=== PATIENT | male | born 1955 | race Caucasian/White ===

== ENCOUNTER → 2022-07-06 08:56 | Outpatient (CLI) | payer MEDICARE, OTHER, SELFPAY | PROVIDERS: PCP Family Medicine; Referring Provider Family Medicine; Visit Provider Family Medicine | DX: M51.16 Intervertebral disc disorders with radiculopathy, lumbar region (principal); M54.50 Low back pain, unspecified; Z53.20 Procedure and treatment not carried out because of patient's decision for unspecified reasons | CPT/HCPCS: 72148 ==

== ENCOUNTER → 2022-07-21 11:17 | Outpatient (CLI) | payer MEDICARE, OTHER, SELFPAY ==
--- NOTE | 2022-07-21 11:18 | DI.MRI.S_ITS ---
PROCEDURE: MR LUMBAR SPINE WO CON INDICATIONS: low back pain TECHNIQUE: Noncontrast sagittal T1 spin echo and T2 fast echo, sagittal STIR, and T2 fast spin echo through the lumbar spine. In cases with scoliosis, additional coronal T2 fast spin echo may be performed. COMPARISON: None. FINDINGS: Image quality: Excellent. Alignment and Curvature: Mild levoconvex scoliotic curvature is noted. Minimal retrolisthesis can be seen at L3-L4 and at L5-S1. Bone Marrow: Marrow is of normal overall signal. No acute vertebral body compression fractures. Spinal Cord: Conus medullaris terminates at the L1 level. Visualized cord demonstrates normal signal and size. Paraspinous Soft Tissues: No paravertebral masses. A large left renal cyst is partially seen that measures at least 9 cm. T12-L1: Normal appearance. L1-L2: The disc height and disc signal are relatively well preserved. Mild generalized disc bulge is seen. There is a mild central/left disc protrusion, as on series 6, image 10. Mild facet joint hypertrophy is seen. There is minimal to mild bilateral neural foraminal narrowing seen. Mild central canal narrowing is seen. L2-L3: Moderate loss of disc height is seen. Loss of disc signal is seen. Moderate disc bulge is seen, which is eccentric to the left, with a left foraminal disc protrusion seen. Moderate facet joint hypertrophy is seen. Moderate bilateral neural foraminal narrowing can be seen, left worse than right. Moderate central canal narrowing is seen. L3-L4: Moderate to severe loss of disc height and disc signal can be seen. Reactive marrow endplate changes are seen which are hypointense on T1-weighted imaging and hyperintense on T2 weighted imaging, which is most consistent with edema (Modic type I changes). At least moderate disc bulge is seen, which is eccentric to the right. Bridging endplate osteophytes are seen on the right side, as on series 2, image 5. Moderate facet hypertrophy is seen, right worse than left. There is at least moderate left-sided and moderate to severe right-sided neural foraminal narrowing. There is a degree of compression seen upon the exiting nerve roots. At least moderate central canal narrowing is seen. L4-L5: Mild loss of disc height is seen. Loss of disc signal is seen. Moderate disc bulge is seen, which is eccentric to the left. There is a central/left disc extrusion. At least moderate facet hypertrophy is seen. There is moderate to severe bilateral neural foraminal narrowing seen, with an associated a degree of compression seen upon the exiting nerve roots. At least moderate central canal narrowing is seen. L5-S1: At least moderate loss of disc height and disc signal can be seen. Moderate disc bulge is seen, which is eccentric to the left. There is a central disc protrusion seen. At least moderate facet hypertrophy is seen. There is moderate right-sided and moderate to severe left-sided neural foraminal narrowing. There is a degree of compression seen upon the exiting left L5 nerve root. Mild central canal narrowing is seen. IMPRESSION: Multiple levels relatively prominent lumbar spine degenerative change can be seen, which are overall worst at the L3-L4 level. Mild levoconvex scoliotic curvature is noted. Dictated by: Meño Davis M.D. on 07/21/2022 at 15:10 Approved by: Meño Davis M.D. on 07/21/2022 at 15:15
== END ==
PROVIDERS: PCP Family Medicine; Referring Provider Family Medicine; Visit Provider Family Medicine
DX: M54.50 Low back pain, unspecified (principal); M47.816 Spondylosis without myelopathy or radiculopathy, lumbar region
CPT/HCPCS: 72148

== ENCOUNTER 2022-11-09 09:45 | Outpatient (RCR) | payer MEDICARE, OTHER, SELFPAY ==
--- NOTE | 2022-08-11 17:54 | PT.OIE ---
Current Diagnoses Pain in right hip (08/11/22) Intervertebral disc disorders with radiculopathy, lumbar region (08/11/22) Low back pain, unspecified (08/11/22) Past Medical History (Last Updated 07/24/22 @ 14:34 by Jane Ellison DO) COPD (chronic obstructive pulmonary disease) Low back pain at multiple sites Radiculopathy due to disorder of intervertebral disc of lumbar spine Visit Care Team Role Provider Type Jane Ellison DO Attending Provider Physician Family Provider Primary Care Provider Referring Provider Specialty: Medical Address: [address] [place] [address], [address], [place], [address] Fax: Email: [email or web address] Physical Therapy Initial Evaluation PT-OP-A Visit Information Start: 08/11/22 17:30 Freq: Status: Active Protocol: Document 08/11/22 10:30 DCW (Rec: 08/11/22 17:53 DCW [id number]) Out-Patient Physical Therapy Visit Information Visit Information Visit Type Initial Evaluation Visit Start Time 10:30 Visit Stop Time 11:15 Total Visit Minutes 45 Visit Number 1 Number of APPLICATION DEVELOPMENT INTERN Visits 0 Evaluation Information Evaluation Date 08/11/22 PT-OP-B Current Condition Start: 08/11/22 17:30 Freq: Status: Active Protocol: Document 08/11/22 10:30 DCW (Rec: 08/11/22 17:53 DCW [id number]) Current Condition History of Current Condition Onset Date ~1 year history Current Complaints Posterior right hip pain History of Current Condition Pt is a 67 year old male presenting to skilled therapy with complaints of a one year history of posterior right hip pain. Pt reports that he has a long-standing, multi-year history of this same type of pain, but it has just been off and on throughout his life. Starting about a year ago, however, he noticed it was no longer going away, which he mainly noticed following a lot of traveling. Pt report pain is worst with extended sitting , especially in a car or airplane. Additionally has increased pain walking up hill . Reports it does feel better with stretching, but has not had any improvement with massage therapy or care director rn. Pt reports pain can occasionally go from his posterior hip down his lateral thigh, typically stopping at his knee, but will occasionally get into his foot. Prior Treatments and Tests Lumbar MRI: IMPRESSION: Multiple levels relatively prominent lumbar spine degenerative change can be seen, which are overall worst at the L3-L4 level. Mild levoconvex scoliotic curvature is noted. per Meño Davis M.D. on 07/21/2022 Treatment Goals Patient/Caregiver Goals Decrease back, hip, and leg pain PT-OP-C Subjective Start: 08/11/22 17:30 Freq: Status: Active Protocol: Document 08/11/22 10:30 DCW (Rec: 08/11/22 17:53 DCW [id number]) OP-PT Subjective Patient Comments Patient Comments I know my MRI said there is a bulging disc, but I've been wondering if it has more to do with the musculature back there. Patient Questionnaires Oswestry Low Back Index Oswestry Score 6/50 = 12% Oswestry Impairment 1 to 19% Impaired (Score 1-19) OP-PT Pain Assessment Pain Assessment Grid Paper Pain Assessment Grid Completed Yes Location Right Posterior Hip Intensity 5 PT-OP-F Manual Assessment Start: 08/11/22 17:30 Freq: Status: Active Protocol: Document 08/11/22 10:30 DCW (Rec: 08/11/22 17:53 DCW [id number]) Manual Assessments Soft Tissue Assessment Soft Tissue Mobility Assessment Moderate-severe hypertonia R>L piriformis, R QL, R paraspinals. Joint Mobility Assessment Joint Mobility Assessment Spinal mobility largely WNL, good ROM, appropriate P->A joint mobility, no complaints of pain PT-OP-K Range of Motion Start: 08/11/22 17:30 Freq: Status: Active Protocol: Document 08/11/22 10:30 DCW (Rec: 08/11/22 17:53 DCW [id number]) Lumbar Spine Range of Motion Lumbar Spine Active Degrees Testing Position Standing Flexion 70 Extension 30 PT-OP-L Special Tests Start: 08/11/22 17:30 Freq: Status: Active Protocol: Document 08/11/22 10:30 DCW (Rec: 08/11/22 17:53 DCW [id number]) Special Tests Lumbar Spine Special Tests JAMEL Test Results Right hip tightness Vertical Spine Loading Test Results Negative Straight Leg Raise Test Results B HS tightness Standing Flexion Test Results Negative Slump Test Results Negative Manual Traction Test Results Mild relief Compression Test Results Negative A-P Shearing Test Results Negative PT-OP-M Strength Start: 08/11/22 17:30 Freq: Status: Active Protocol: Document 08/11/22 10:30 DCW (Rec: 08/11/22 17:53 DCW [id number]) Hip Strength Hip Manual Muscle Testing Right Flexion (L2) 4 Good Abduction 4 Good Adduction 4 Good External Rotation 5 Normal Internal Rotation 5 Normal Left Flexion (L2) 5 Normal Abduction 5 Normal Adduction 5 Normal External Rotation 5 Normal Internal Rotation 5 Normal Knee Strength Knee Manual Muscle Testing Right Flexion (S2) 5 Normal Extension (L3) 5 Normal Left Flexion (S2) 5 Normal Extension (L3) 5 Normal PT-OP-Q Treatments Start: 08/11/22 17:30 Freq: Status: Active Protocol: Document 08/11/22 10:30 DCW (Rec: 08/11/22 17:53 DCW [id number]) Therapeutic Exercises Supine Exercises Piriformis Stretch Supine Exercise Name Figure-4, Knee to opposite shoulder Side right Sitting Exercises Self-STM Sitting Exercise Name Piriformis STM Side right Comments Tennis ball Piriformis Stretch Sitting Exercise Name Seated figure-4 Side right PT-OP-T Assessment and Plan Start: 08/11/22 17:30 Freq: Status: Active Protocol: Document 08/11/22 10:30 DCW (Rec: 08/11/22 17:53 DCW [id number]) Physical Therapy Assessment Rehab Potential Rehabilitation Potential Good Evaluation Complexity Number of Personal Factors/Comorbidities 1-2 Number of Body Systems Impaired 3 Clinical Presentation at Evaluation Stable Impairments Impairments Functional Activities, Functional Mobility,Pain,ROM, Sensation,Soft Tissue Mobility ,Strength,Tone Goals Two Impairment Pt experiences radicular symptoms with extended sitting Reed Repairer Goal (LTG) Pt to demonstrate ability to sit in his car for >90 minutes to improve his ability to travel without pain. LTG Duration 10/11/22 One Impairment Pt does not have an appropriate home exercise program Short Term Goal (STG) Pt to be independent and compliant with an appropriate HEP STG Duration 09/10/22 Assessment Summary Assessment Pt presents with signs and symptoms consistent with referring diagnosis. Pt showing radicular symptoms down right leg with extended periods of sitting. MRI does show L4 bulging disc, which may be contributing factor, as well as degenerative changes. Pt has some mild relief with traction. Some of pt's symptoms may additionally be caused by increased tone in his musculature, specifically his piriformis. Moderate- severe tone in right piriformis, pt responded very well to stretching and STM, noted almost immediate improvement in symptoms. Pt should benefit from skilled therapy focusing on improving tone/flexibility, STM, lumbar traction, and lumbar extension exercises to improve disc bulge in an effort to help decrease protective spasming in lumbar spine and posterior hips. Physical Therapy Plan Frequency and Duration Frequency of Treatment 2x/Week Plan of Care Start Date 08/11/22 Plan of Care End Date 10/11/22 Therapeutic Interventions Therapeutic Interventions Aquatic Therapy,Home Exercise Program,Joint Mobilizations, Manual Therapy,Neuromuscular Re-education,Patient/Caregiver Education,Self-Care/Home Management,Soft Tissue Mobilization,Therapeutic Activities,Therapeutic Exercises Modalities Cold Pack/Ice Massage,Electric Stimulation,Hot Packs, Ultrasound Next Visit Focus/Plan Next Note Type Treatment Note Next Visit Plan Stretching, STM, hip and core strengthening
--- NOTE | 2022-08-11 17:55 | PT.OPPOC ---
Physical, Occupational & Speech Therapy At [facility] Current Diagnoses Pain in right hip (08/11/22) Intervertebral disc disorders with radiculopathy, lumbar region (08/11/22) Low back pain, unspecified (08/11/22) Visit Care Team Role Provider Type Jane Ellison DO Attending Provider Physician Family Provider Primary Care Provider Referring Provider Specialty: Medical Address: [address] [place] [address], [address], [place], [address] Fax: Email: [email or web address] Plan Of Care PT-OP-T Assessment and Plan Start: 08/11/22 17:30 Freq: Status: Active Protocol: Document 08/11/22 10:30 DCW (Rec: 08/11/22 17:53 DCW [id number]) Physical Therapy Assessment Rehab Potential Rehabilitation Potential Good Evaluation Complexity Number of Personal Factors/Comorbidities 1-2 Number of Body Systems Impaired 3 Clinical Presentation at Evaluation Stable Impairments Impairments Functional Activities, Functional Mobility,Pain,ROM, Sensation,Soft Tissue Mobility ,Strength,Tone Goals Two Impairment Pt experiences radicular symptoms with extended sitting Care Home Goal (LTG) Pt to demonstrate ability to sit in his car for >90 minutes to improve his ability to travel without pain. LTG Duration 10/11/22 One Impairment Pt does not have an appropriate home exercise program Short Term Goal (STG) Pt to be independent and compliant with an appropriate HEP STG Duration 09/10/22 Assessment Summary Assessment Pt presents with signs and symptoms consistent with referring diagnosis. Pt showing radicular symptoms down right leg with extended periods of sitting. MRI does show L4 bulging disc, which may be contributing factor, as well as degenerative changes. Pt has some mild relief with traction. Some of pt's symptoms may additionally be caused by increased tone in his musculature, specifically his piriformis. Moderate- severe tone in right piriformis, pt responded very well to stretching and STM, noted almost immediate improvement in symptoms. Pt should benefit from skilled therapy focusing on improving tone/flexibility, STM, lumbar traction, and lumbar extension exercises to improve disc bulge in an effort to help decrease protective spasming in lumbar spine and posterior hips. Physical Therapy Plan Frequency and Duration Frequency of Treatment 2x/Week Plan of Care Start Date 08/11/22 Plan of Care End Date 10/11/22 Therapeutic Interventions Therapeutic Interventions Aquatic Therapy,Home Exercise Program,Joint Mobilizations, Manual Therapy,Neuromuscular Re-education,Patient/Caregiver Education,Self-Care/Home Management,Soft Tissue Mobilization,Therapeutic Activities,Therapeutic Exercises Modalities Cold Pack/Ice Massage,Electric Stimulation,Hot Packs, Ultrasound Next Visit Focus/Plan Next Note Type Treatment Note Next Visit Plan Stretching, STM, hip and core strengthening Plan of Care Dates Plan of Care Start Date 08/11/22 Plan of Care End Date 10/11/22 Electronically Signed by: Yogesh Kapadia, PT 08/11/22 3655 If you are in agreement with this Plan of Care, please return a signed and dated copy. I have reviewed this Plan of Care and certify that the skilled therapy services above are required to meet the patient?s needs. Physician Signature Date Printed Name and Credentials Clinical Instructor Signature Printed Name and Credentials
--- NOTE | 2022-08-18 12:48 | PT.OTN ---
Current Diagnoses Pain in right hip (08/18/22) Intervertebral disc disorders with radiculopathy, lumbar region (08/18/22) Low back pain, unspecified (08/18/22) Physical Therapy Treatment Note PT-OP-A Visit Information Start: 08/11/22 17:30 Freq: Status: Active Protocol: Document 08/18/22 12:00 DCW (Rec: 08/18/22 12:48 DCW [id number]) Out-Patient Physical Therapy Visit Information Visit Information Visit Type Treatment Note Visit Start Time 12:00 Visit Stop Time 12:45 Total Visit Minutes 45 Visit Number 2 Number of SENIOR MEDIA BUYER Visits 0 Evaluation Information Evaluation Date 08/11/22 PT-OP-B Current Condition Start: 08/11/22 17:30 Freq: Status: Active Protocol: Document 08/11/22 10:30 DCW (Rec: 08/11/22 17:53 DCW [id number]) Current Condition History of Current Condition Onset Date ~1 year history Current Complaints Posterior right hip pain History of Current Condition Pt is a 67 year old male presenting to skilled therapy with complaints of a one year history of posterior right hip pain. Pt reports that he has a long-standing, multi-year history of this same type of pain, but it has just been off and on throughout his life. Starting about a year ago, however, he noticed it was no longer going away, which he mainly noticed following a lot of traveling. Pt report pain is worst with extended sitting , especially in a car or airplane. Additionally has increased pain walking up hill . Reports it does feel better with stretching, but has not had any improvement with massage therapy or residential care officer. Pt reports pain can occasionally go from his posterior hip down his lateral thigh, typically stopping at his knee, but will occasionally get into his foot. Prior Treatments and Tests Lumbar MRI: IMPRESSION: Multiple levels relatively prominent lumbar spine degenerative change can be seen, which are overall worst at the L3-L4 level. Mild levoconvex scoliotic curvature is noted. per Meño Davis M.D. on 07/21/2022 Treatment Goals Patient/Caregiver Goals Decrease back, hip, and leg pain PT-OP-C Subjective Start: 08/11/22 17:30 Freq: Status: Active Protocol: Document 08/18/22 12:00 DCW (Rec: 08/18/22 12:48 DCW [id number]) OP-PT Subjective Patient Comments Patient Comments Pt reports he is better, I think. Notes less intense, debilitating pain. PT-OP-F Manual Assessment Start: 08/11/22 17:30 Freq: Status: Active Protocol: Document 08/11/22 10:30 DCW (Rec: 08/11/22 17:53 DCW [id number]) Manual Assessments Soft Tissue Assessment Soft Tissue Mobility Assessment Moderate-severe hypertonia R>L piriformis, R QL, R paraspinals. Joint Mobility Assessment Joint Mobility Assessment Spinal mobility largely WNL, good ROM, appropriate P->A joint mobility, no complaints of pain PT-OP-K Range of Motion Start: 08/11/22 17:30 Freq: Status: Active Protocol: Document 08/11/22 10:30 DCW (Rec: 08/11/22 17:53 DCW [id number]) Lumbar Spine Range of Motion Lumbar Spine Active Degrees Testing Position Standing Flexion 70 Extension 30 PT-OP-L Special Tests Start: 08/11/22 17:30 Freq: Status: Active Protocol: Document 08/11/22 10:30 DCW (Rec: 08/11/22 17:53 DCW [id number]) Special Tests Lumbar Spine Special Tests JAMEL Test Results Right hip tightness Vertical Spine Loading Test Results Negative Straight Leg Raise Test Results B HS tightness Standing Flexion Test Results Negative Slump Test Results Negative Manual Traction Test Results Mild relief Compression Test Results Negative A-P Shearing Test Results Negative PT-OP-M Strength Start: 08/11/22 17:30 Freq: Status: Active Protocol: Document 08/11/22 10:30 DCW (Rec: 08/11/22 17:53 DCW [id number]) Hip Strength Hip Manual Muscle Testing Right Flexion (L2) 4 Good Abduction 4 Good Adduction 4 Good External Rotation 5 Normal Internal Rotation 5 Normal Left Flexion (L2) 5 Normal Abduction 5 Normal Adduction 5 Normal External Rotation 5 Normal Internal Rotation 5 Normal Knee Strength Knee Manual Muscle Testing Right Flexion (S2) 5 Normal Extension (L3) 5 Normal Left Flexion (S2) 5 Normal Extension (L3) 5 Normal PT-OP-Q Treatments Start: 08/11/22 17:30 Freq: Status: Active Protocol: Document 08/18/22 12:00 DCW (Rec: 08/18/22 12:48 DCW [id number]) Therapeutic Exercises Supine Exercises Hamstring Supine Exercise Name HS stretch Side right Piriformis Stretch Supine Exercise Name Figure-4 Side right Sidelying Exercises Hip Abduction Sidelying Exercise Name Hip Abduction Side right Reverse Clamshell Sidelying Exercise Name Reverse Clamshell Side right Clamshell Sidelying Exercise Name Clamshell Side right Manual Therapy Treatment Soft Tissue Mobilization QL Body Location R QL Mobilization Type Strumming,Sustained Pressure, Trigger Point Release Intensity/Depth Moderate Body Position Sidelying Piriformis Body Location R Piriformis Mobilization Type Sustained Pressure,Trigger Point Release Intensity/Depth Moderate Body Position Sidelying Manual Traction Lumbar Details Short [place] LE traction /c strap Body Position Hooklying PT-OP-T Assessment and Plan Start: 08/11/22 17:30 Freq: Status: Active Protocol: Document 08/18/22 12:00 DCW (Rec: 08/18/22 12:48 DCW [id number]) Physical Therapy Assessment Impairments Impairments Functional Activities, Functional Mobility,Pain,ROM, Sensation,Soft Tissue Mobility ,Strength,Tone Goals Two Impairment Pt experiences radicular symptoms with extended sitting Mcc Goal (LTG) Pt to demonstrate ability to sit in his car for >90 minutes to improve his ability to travel without pain. LTG Duration 10/11/22 One Impairment Pt does not have an appropriate home exercise program Short Term Goal (STG) Pt to be independent and compliant with an appropriate HEP STG Duration 09/10/22 Assessment Summary Assessment Pt tolerated all treatment very well today, seems to be responding very well to stretching and STM so far. Physical Therapy Plan Frequency and Duration Frequency of Treatment 2x/Week Plan of Care Start Date 08/11/22 Plan of Care End Date 10/11/22 Therapeutic Interventions Therapeutic Interventions Aquatic Therapy,Home Exercise Program,Joint Mobilizations, Manual Therapy,Neuromuscular Re-education,Patient/Caregiver Education,Self-Care/Home Management,Soft Tissue Mobilization,Therapeutic Activities,Therapeutic Exercises Modalities Cold Pack/Ice Massage,Electric Stimulation,Hot Packs, Ultrasound Next Visit Focus/Plan Next Note Type Treatment Note Next Visit Plan Stretching, STM, hip and core strengthening
--- NOTE | 2022-08-24 11:14 | PT.OTN ---
Current Diagnoses Pain in right hip (08/24/22) Intervertebral disc disorders with radiculopathy, lumbar region (08/24/22) Low back pain, unspecified (08/24/22) Physical Therapy Treatment Note PT-OP-A Visit Information Start: 08/11/22 17:30 Freq: Status: Active Protocol: Document 08/24/22 10:30 DCW (Rec: 08/24/22 11:14 DCW [id number]) Out-Patient Physical Therapy Visit Information Visit Information Visit Type Treatment Note Visit Start Time 10:30 Visit Stop Time 11:15 Total Visit Minutes 45 Visit Number 3 Number of LICENSED MASSAGE THERAPIST Visits 0 Evaluation Information Evaluation Date 08/11/22 PT-OP-B Current Condition Start: 08/11/22 17:30 Freq: Status: Active Protocol: Document 08/11/22 10:30 DCW (Rec: 08/11/22 17:53 DCW [id number]) Current Condition History of Current Condition Onset Date ~1 year history Current Complaints Posterior right hip pain History of Current Condition Pt is a 67 year old male presenting to skilled therapy with complaints of a one year history of posterior right hip pain. Pt reports that he has a long-standing, multi-year history of this same type of pain, but it has just been off and on throughout his life. Starting about a year ago, however, he noticed it was no longer going away, which he mainly noticed following a lot of traveling. Pt report pain is worst with extended sitting , especially in a car or airplane. Additionally has increased pain walking up hill . Reports it does feel better with stretching, but has not had any improvement with massage therapy or critical care nurse specialist. Pt reports pain can occasionally go from his posterior hip down his lateral thigh, typically stopping at his knee, but will occasionally get into his foot. Prior Treatments and Tests Lumbar MRI: IMPRESSION: Multiple levels relatively prominent lumbar spine degenerative change can be seen, which are overall worst at the L3-L4 level. Mild levoconvex scoliotic curvature is noted. per Meño Davis M.D. on 07/21/2022 Treatment Goals Patient/Caregiver Goals Decrease back, hip, and leg pain PT-OP-C Subjective Start: 08/11/22 17:30 Freq: Status: Active Protocol: Document 08/24/22 10:30 DCW (Rec: 08/24/22 11:14 DCW [id number]) OP-PT Subjective Patient Comments Patient Comments Still getting better. PT-OP-F Manual Assessment Start: 08/11/22 17:30 Freq: Status: Active Protocol: Document 08/11/22 10:30 DCW (Rec: 08/11/22 17:53 DCW [id number]) Manual Assessments Soft Tissue Assessment Soft Tissue Mobility Assessment Moderate-severe hypertonia R>L piriformis, R QL, R paraspinals. Joint Mobility Assessment Joint Mobility Assessment Spinal mobility largely WNL, good ROM, appropriate P->A joint mobility, no complaints of pain PT-OP-K Range of Motion Start: 08/11/22 17:30 Freq: Status: Active Protocol: Document 08/11/22 10:30 DCW (Rec: 08/11/22 17:53 DCW [id number]) Lumbar Spine Range of Motion Lumbar Spine Active Degrees Testing Position Standing Flexion 70 Extension 30 PT-OP-L Special Tests Start: 08/11/22 17:30 Freq: Status: Active Protocol: Document 08/11/22 10:30 DCW (Rec: 08/11/22 17:53 DCW [id number]) Special Tests Lumbar Spine Special Tests JAMEL Test Results Right hip tightness Vertical Spine Loading Test Results Negative Straight Leg Raise Test Results B HS tightness Standing Flexion Test Results Negative Slump Test Results Negative Manual Traction Test Results Mild relief Compression Test Results Negative A-P Shearing Test Results Negative PT-OP-M Strength Start: 08/11/22 17:30 Freq: Status: Active Protocol: Document 08/11/22 10:30 DCW (Rec: 08/11/22 17:53 DCW [id number]) Hip Strength Hip Manual Muscle Testing Right Flexion (L2) 4 Good Abduction 4 Good Adduction 4 Good External Rotation 5 Normal Internal Rotation 5 Normal Left Flexion (L2) 5 Normal Abduction 5 Normal Adduction 5 Normal External Rotation 5 Normal Internal Rotation 5 Normal Knee Strength Knee Manual Muscle Testing Right Flexion (S2) 5 Normal Extension (L3) 5 Normal Left Flexion (S2) 5 Normal Extension (L3) 5 Normal PT-OP-Q Treatments Start: 08/11/22 17:30 Freq: Status: Active Protocol: Document 08/24/22 10:30 DCW (Rec: 08/24/22 11:14 DCW [id number]) Therapeutic Exercises Supine Exercises TrA SLR Supine Exercise Name PPT /c SLR TrA Marching Supine Exercise Name PPT /c Marching TrA Supine Exercise Name PPT /c TrA contraction Hamstring Supine Exercise Name HS stretch Side right Piriformis Stretch Supine Exercise Name Figure-4 Side right Manual Therapy Treatment Soft Tissue Mobilization QL Body Location R QL Mobilization Type Strumming,Sustained Pressure, Trigger Point Release Intensity/Depth Moderate Body Position Sidelying Piriformis Body Location R Piriformis Mobilization Type Sustained Pressure,Trigger Point Release Intensity/Depth Moderate Body Position Sidelying Manual Traction Lumbar Details Short [place] LE traction /c strap Body Position Hooklying PT-OP-T Assessment and Plan Start: 08/11/22 17:30 Freq: Status: Active Protocol: Document 08/24/22 10:30 DCW (Rec: 08/24/22 11:14 DCW [id number]) Physical Therapy Assessment Impairments Impairments Functional Activities, Functional Mobility,Pain,ROM, Sensation,Soft Tissue Mobility ,Strength,Tone Goals Two Impairment Pt experiences radicular symptoms with extended sitting Deckhand Engineer Goal (LTG) Pt to demonstrate ability to sit in his car for >90 minutes to improve his ability to travel without pain. LTG Duration 10/11/22 One Impairment Pt does not have an appropriate home exercise program Short Term Goal (STG) Pt to be independent and compliant with an appropriate HEP STG Duration 09/10/22 Assessment Summary Assessment Tolerated very well today, responded well with new TrA activities. Physical Therapy Plan Frequency and Duration Frequency of Treatment 2x/Week Plan of Care Start Date 08/11/22 Plan of Care End Date 10/11/22 Therapeutic Interventions Therapeutic Interventions Aquatic Therapy,Home Exercise Program,Joint Mobilizations, Manual Therapy,Neuromuscular Re-education,Patient/Caregiver Education,Self-Care/Home Management,Soft Tissue Mobilization,Therapeutic Activities,Therapeutic Exercises Modalities Cold Pack/Ice Massage,Electric Stimulation,Hot Packs, Ultrasound Next Visit Focus/Plan Next Note Type Treatment Note Next Visit Plan Stretching, STM, hip and core strengthening
--- NOTE | 2022-08-26 11:19 | PT.OTN ---
Current Diagnoses Pain in right hip (08/26/22) Intervertebral disc disorders with radiculopathy, lumbar region (08/26/22) Low back pain, unspecified (08/26/22) Physical Therapy Treatment Note PT-OP-A Visit Information Start: 08/11/22 17:30 Freq: Status: Active Protocol: Document 08/26/22 10:30 DCW (Rec: 08/26/22 11:19 DCW [id number]) Out-Patient Physical Therapy Visit Information Visit Information Visit Type Treatment Note Visit Start Time 10:30 Visit Stop Time 11:15 Total Visit Minutes 45 Visit Number 4 Number of ASSOCIATE PROFESSOR OF ART HISTORY Visits 0 Evaluation Information Evaluation Date 08/11/22 PT-OP-B Current Condition Start: 08/11/22 17:30 Freq: Status: Active Protocol: Document 08/11/22 10:30 DCW (Rec: 08/11/22 17:53 DCW [id number]) Current Condition History of Current Condition Onset Date ~1 year history Current Complaints Posterior right hip pain History of Current Condition Pt is a 67 year old male presenting to skilled therapy with complaints of a one year history of posterior right hip pain. Pt reports that he has a long-standing, multi-year history of this same type of pain, but it has just been off and on throughout his life. Starting about a year ago, however, he noticed it was no longer going away, which he mainly noticed following a lot of traveling. Pt report pain is worst with extended sitting , especially in a car or airplane. Additionally has increased pain walking up hill . Reports it does feel better with stretching, but has not had any improvement with massage therapy or care tech. Pt reports pain can occasionally go from his posterior hip down his lateral thigh, typically stopping at his knee, but will occasionally get into his foot. Prior Treatments and Tests Lumbar MRI: IMPRESSION: Multiple levels relatively prominent lumbar spine degenerative change can be seen, which are overall worst at the L3-L4 level. Mild levoconvex scoliotic curvature is noted. per Meño Davis M.D. on 07/21/2022 Treatment Goals Patient/Caregiver Goals Decrease back, hip, and leg pain PT-OP-C Subjective Start: 08/11/22 17:30 Freq: Status: Active Protocol: Document 08/26/22 10:30 DCW (Rec: 08/26/22 11:19 DCW [id number]) OP-PT Subjective Patient Comments Patient Comments A lot better, really, but still not up to par. PT-OP-F Manual Assessment Start: 08/11/22 17:30 Freq: Status: Active Protocol: Document 08/11/22 10:30 DCW (Rec: 08/11/22 17:53 DCW [id number]) Manual Assessments Soft Tissue Assessment Soft Tissue Mobility Assessment Moderate-severe hypertonia R>L piriformis, R QL, R paraspinals. Joint Mobility Assessment Joint Mobility Assessment Spinal mobility largely WNL, good ROM, appropriate P->A joint mobility, no complaints of pain PT-OP-K Range of Motion Start: 08/11/22 17:30 Freq: Status: Active Protocol: Document 08/11/22 10:30 DCW (Rec: 08/11/22 17:53 DCW [id number]) Lumbar Spine Range of Motion Lumbar Spine Active Degrees Testing Position Standing Flexion 70 Extension 30 PT-OP-L Special Tests Start: 08/11/22 17:30 Freq: Status: Active Protocol: Document 08/11/22 10:30 DCW (Rec: 08/11/22 17:53 DCW [id number]) Special Tests Lumbar Spine Special Tests JAMEL Test Results Right hip tightness Vertical Spine Loading Test Results Negative Straight Leg Raise Test Results B HS tightness Standing Flexion Test Results Negative Slump Test Results Negative Manual Traction Test Results Mild relief Compression Test Results Negative A-P Shearing Test Results Negative PT-OP-M Strength Start: 08/11/22 17:30 Freq: Status: Active Protocol: Document 08/11/22 10:30 DCW (Rec: 08/11/22 17:53 DCW [id number]) Hip Strength Hip Manual Muscle Testing Right Flexion (L2) 4 Good Abduction 4 Good Adduction 4 Good External Rotation 5 Normal Internal Rotation 5 Normal Left Flexion (L2) 5 Normal Abduction 5 Normal Adduction 5 Normal External Rotation 5 Normal Internal Rotation 5 Normal Knee Strength Knee Manual Muscle Testing Right Flexion (S2) 5 Normal Extension (L3) 5 Normal Left Flexion (S2) 5 Normal Extension (L3) 5 Normal PT-OP-Q Treatments Start: 08/11/22 17:30 Freq: Status: Active Protocol: Document 08/26/22 10:30 DCW (Rec: 08/26/22 11:19 DCW [id number]) Therapeutic Exercises Supine Exercises Hip Flexors Supine Exercise Name Hip Flexor stretch Side right Comments Leg off table Hamstring Supine Exercise Name HS stretch Side right Piriformis Stretch Supine Exercise Name Figure-4 Side right Manual Therapy Treatment Soft Tissue Mobilization QL Body Location R QL Mobilization Type Strumming,Sustained Pressure, Trigger Point Release Intensity/Depth Moderate Body Position Sidelying Piriformis Body Location R Piriformis Mobilization Type Sustained Pressure,Trigger Point Release Intensity/Depth Moderate Body Position Sidelying Manual Traction Lumbar Details Short [place] LE traction /c strap Body Position Hooklying PT-OP-T Assessment and Plan Start: 08/11/22 17:30 Freq: Status: Active Protocol: Document 08/26/22 10:30 DCW (Rec: 08/26/22 11:19 DCW [id number]) Physical Therapy Assessment Impairments Impairments Functional Activities, Functional Mobility,Pain,ROM, Sensation,Soft Tissue Mobility ,Strength,Tone Goals Two Impairment Pt experiences radicular symptoms with extended sitting Band Bias Machine Operator Goal (LTG) Pt to demonstrate ability to sit in his car for >90 minutes to improve his ability to travel without pain. LTG Duration 10/11/22 One Impairment Pt does not have an appropriate home exercise program Short Term Goal (STG) Pt to be independent and compliant with an appropriate HEP STG Duration 09/10/22 Assessment Summary Assessment Pt showing good response to therapeutic intervention and HEP. Significant improvement with pain levels and mobility. Pt was able to go out and do some bird watching yesterday with no increase in pain. Physical Therapy Plan Frequency and Duration Frequency of Treatment 2x/Week Plan of Care Start Date 08/11/22 Plan of Care End Date 10/11/22 Therapeutic Interventions Therapeutic Interventions Aquatic Therapy,Home Exercise Program,Joint Mobilizations, Manual Therapy,Neuromuscular Re-education,Patient/Caregiver Education,Self-Care/Home Management,Soft Tissue Mobilization,Therapeutic Activities,Therapeutic Exercises Modalities Cold Pack/Ice Massage,Electric Stimulation,Hot Packs, Ultrasound Next Visit Focus/Plan Next Note Type Treatment Note Next Visit Plan Stretching, STM, hip and core strengthening
--- NOTE | 2022-08-31 12:24 | PT.OTN ---
Current Diagnoses Pain in right hip (08/31/22) Intervertebral disc disorders with radiculopathy, lumbar region (08/31/22) Low back pain, unspecified (08/31/22) Physical Therapy Treatment Note PT-OP-A Visit Information Start: 08/11/22 17:30 Freq: Status: Active Protocol: Document 08/31/22 11:03 NBM (Rec: 08/31/22 12:22 NBM [id number]) Out-Patient Physical Therapy Visit Information Visit Information Visit Type Treatment Note Visit Start Time 11:10 Visit Stop Time 12:00 Total Visit Minutes 50 Visit Number 5 Number of BUSINESS RULES ANALYST Visits 1 Evaluation Information Evaluation Date 08/11/22 PT-OP-B Current Condition Start: 08/11/22 17:30 Freq: Status: Active Protocol: Document 08/11/22 10:30 DCW (Rec: 08/11/22 17:53 DCW [id number]) Current Condition History of Current Condition Onset Date ~1 year history Current Complaints Posterior right hip pain History of Current Condition Pt is a 67 year old male presenting to skilled therapy with complaints of a one year history of posterior right hip pain. Pt reports that he has a long-standing, multi-year history of this same type of pain, but it has just been off and on throughout his life. Starting about a year ago, however, he noticed it was no longer going away, which he mainly noticed following a lot of traveling. Pt report pain is worst with extended sitting , especially in a car or airplane. Additionally has increased pain walking up hill . Reports it does feel better with stretching, but has not had any improvement with massage therapy or regular senior care provider. Pt reports pain can occasionally go from his posterior hip down his lateral thigh, typically stopping at his knee, but will occasionally get into his foot. Prior Treatments and Tests Lumbar MRI: IMPRESSION: Multiple levels relatively prominent lumbar spine degenerative change can be seen, which are overall worst at the L3-L4 level. Mild levoconvex scoliotic curvature is noted. per Meño Davis M.D. on 07/21/2022 Treatment Goals Patient/Caregiver Goals Decrease back, hip, and leg pain PT-OP-C Subjective Start: 08/11/22 17:30 Freq: Status: Active Protocol: Document 08/31/22 11:03 NBM (Rec: 08/31/22 12:22 [facility] [id number]) OP-PT Subjective Patient Comments Patient Comments Pt states PT-OP-F Manual Assessment Start: 08/11/22 17:30 Freq: Status: Active Protocol: Document 08/11/22 10:30 DCW (Rec: 08/11/22 17:53 DCW [id number]) Manual Assessments Soft Tissue Assessment Soft Tissue Mobility Assessment Moderate-severe hypertonia R>L piriformis, R QL, R paraspinals. Joint Mobility Assessment Joint Mobility Assessment Spinal mobility largely WNL, good ROM, appropriate P->A joint mobility, no complaints of pain PT-OP-K Range of Motion Start: 08/11/22 17:30 Freq: Status: Active Protocol: Document 08/11/22 10:30 DCW (Rec: 08/11/22 17:53 DCW [id number]) Lumbar Spine Range of Motion Lumbar Spine Active Degrees Testing Position Standing Flexion 70 Extension 30 PT-OP-L Special Tests Start: 08/11/22 17:30 Freq: Status: Active Protocol: Document 08/11/22 10:30 DCW (Rec: 08/11/22 17:53 DCW [id number]) Special Tests Lumbar Spine Special Tests JAMEL Test Results Right hip tightness Vertical Spine Loading Test Results Negative Straight Leg Raise Test Results B HS tightness Standing Flexion Test Results Negative Slump Test Results Negative Manual Traction Test Results Mild relief Compression Test Results Negative A-P Shearing Test Results Negative PT-OP-M Strength Start: 08/11/22 17:30 Freq: Status: Active Protocol: Document 08/11/22 10:30 DCW (Rec: 08/11/22 17:53 DCW [id number]) Hip Strength Hip Manual Muscle Testing Right Flexion (L2) 4 Good Abduction 4 Good Adduction 4 Good External Rotation 5 Normal Internal Rotation 5 Normal Left Flexion (L2) 5 Normal Abduction 5 Normal Adduction 5 Normal External Rotation 5 Normal Internal Rotation 5 Normal Knee Strength Knee Manual Muscle Testing Right Flexion (S2) 5 Normal Extension (L3) 5 Normal Left Flexion (S2) 5 Normal Extension (L3) 5 Normal PT-OP-Q Treatments Start: 08/11/22 17:30 Freq: Status: Active Protocol: Document 08/31/22 11:03 NBM (Rec: 08/31/22 12:22 NB [id number]) Therapeutic Exercises Supine Exercises TrA BKFO Supine Exercise Name HEP Side bilateral Reps/Minutes x10 ea Comments cues for TrA activation and no breathholding Hip Flexors Supine Exercise Name Hip Flexor stretch - HEP Side right Comments Leg off table TrA SLR Supine Exercise Name PPT /c SLR - HEP Comments cues for TrA and no breathholding TrA Marching Supine Exercise Name PPT /c Marching - HEP Comments cues for TrA and no breathholding TrA Supine Exercise Name PPT /c TrA contraction - HEP Reps/Minutes 10 x 2-3 breath cycles Comments cues for TrA and no breathholding Hamstring Supine Exercise Name HS stretch - HEP Side right Equipment Used manual, then w/ strap Comments Contract/Relax x 10 Piriformis Stretch Supine Exercise Name Figure-4 - HEP Side right Self-Care/Home Management Treatment Education Patient Education Home Exercise Program,Pain Management,Posture Other Education Education of core anatomy with focus on Transverse abdominus and relationship with diaphragm, pelvic floor, and low back pain. Discussed importance of not breathholding with exercises and how to self-monitor for TrA activation in supine w/ palpation medial to ASIS. Issued HEP for supine PPT progression w/ TrA focus: PPT, w/ BKFO, w alternate marching , w/ SLR; supine stretching HEP: Piriformis (Fig 4), HS w/ strap, and hip flexor (Slick position) - HO given. PT-OP-T Assessment and Plan Start: 08/11/22 17:30 Freq: Status: Active Protocol: Document 08/31/22 11:03 [facility] (Rec: 08/31/22 12:22 [facility] [id number]) Physical Therapy Assessment Impairments Impairments Functional Activities, Functional Mobility,Pain,ROM, Sensation,Soft Tissue Mobility ,Strength,Tone Goals Two Impairment Pt experiences radicular symptoms with extended sitting Senior Developer Goal (LTG) Pt to demonstrate ability to sit in his car for >90 minutes to improve his ability to travel without pain. LTG Duration 10/11/22 One Impairment Pt does not have an appropriate home exercise program Short Term Goal (STG) Pt to be independent and compliant with an appropriate HEP STG Duration 09/10/22 Assessment Summary Assessment Pt continues to present with improved symptoms but still reports he is unable to sit for goal of 90 minutes without increased symptoms and has occasional low back twinge today. Treatment focus on HEP and core activation education. Education of core anatomy with focus on Transverse abdominus and relationship with diaphragm, pelvic floor, and low back pain. Discussed importance of not breathholding with exercises and how to self-monitor for TrA activation in supine w/ palpation medial to ASIS. Issued HEP for supine PPT progression w/ TrA focus: PPT, w/ BKFO, w alternate marching , w/ SLR; supine stretching HEP: Piriformis (Fig 4), HS w/ strap, and hip flexor (Slick position) - HO given. Pt initially requires cues for slower pacing, abdominal overactivation and breathholding but demonstrates improved self-awareness by end of session with education, cueing and repetition. Pt reports he feels looser end of session. Physical Therapy Plan Frequency and Duration Frequency of Treatment 2x/Week Plan of Care Start Date 08/11/22 Plan of Care End Date 10/11/22 Therapeutic Interventions Therapeutic Interventions Aquatic Therapy,Home Exercise Program,Joint Mobilizations, Manual Therapy,Neuromuscular Re-education,Patient/Caregiver Education,Self-Care/Home Management,Soft Tissue Mobilization,Therapeutic Activities,Therapeutic Exercises Modalities Cold Pack/Ice Massage,Electric Stimulation,Hot Packs, Ultrasound Next Visit Focus/Plan Next Note Type Treatment Note Next Visit Plan Reassess HEP; Assess sidelying and sitting ex w/ TrA/PPT focus - Consider adding LTR, [employer] Book. Manual as needed. POC: Stretching, STM, hip and core strengthening
--- NOTE | 2022-09-04 17:20 | PT.OTN ---
Current Diagnoses Pain in right hip (09/04/22) Intervertebral disc disorders with radiculopathy, lumbar region (09/04/22) Low back pain, unspecified (09/04/22) Physical Therapy Treatment Note PT-OP-A Visit Information Start: 08/11/22 17:30 Freq: Status: Active Protocol: Document 09/04/22 14:31 NBM (Rec: 09/04/22 15:17 NBM [id number]) Out-Patient Physical Therapy Visit Information Visit Information Visit Type Treatment Note Visit Start Time 14:30 Visit Stop Time 15:16 Total Visit Minutes 46 Visit Number 6 Number of BAG LINER Visits 2 PT-OP-B Current Condition Start: 08/11/22 17:30 Freq: Status: Active Protocol: Document 08/11/22 10:30 DCW (Rec: 08/11/22 17:53 DCW [id number]) Current Condition History of Current Condition Onset Date ~1 year history Current Complaints Posterior right hip pain History of Current Condition Pt is a 67 year old male presenting to skilled therapy with complaints of a one year history of posterior right hip pain. Pt reports that he has a long-standing, multi-year history of this same type of pain, but it has just been off and on throughout his life. Starting about a year ago, however, he noticed it was no longer going away, which he mainly noticed following a lot of traveling. Pt report pain is worst with extended sitting , especially in a car or airplane. Additionally has increased pain walking up hill . Reports it does feel better with stretching, but has not had any improvement with massage therapy or career services director. Pt reports pain can occasionally go from his posterior hip down his lateral thigh, typically stopping at his knee, but will occasionally get into his foot. Prior Treatments and Tests Lumbar MRI: IMPRESSION: Multiple levels relatively prominent lumbar spine degenerative change can be seen, which are overall worst at the L3-L4 level. Mild levoconvex scoliotic curvature is noted. per Meño Davis M.D. on 07/21/2022 Treatment Goals Patient/Caregiver Goals Decrease back, hip, and leg pain PT-OP-C Subjective Start: 08/11/22 17:30 Freq: Status: Active Protocol: Document 09/04/22 14:31 NBM (Rec: 09/04/22 15:17 NBM [id number]) OP-PT Subjective Patient Comments Patient Comments Pt reports he thinks he is doing his exercises correctly. He still gets a catch in his low back and R hip, and has symptoms going from his R hip down his thigh. PT-OP-F Manual Assessment Start: 08/11/22 17:30 Freq: Status: Active Protocol: Document 08/11/22 10:30 DCW (Rec: 08/11/22 17:53 DCW [id number]) Manual Assessments Soft Tissue Assessment Soft Tissue Mobility Assessment Moderate-severe hypertonia R>L piriformis, R QL, R paraspinals. Joint Mobility Assessment Joint Mobility Assessment Spinal mobility largely WNL, good ROM, appropriate P->A joint mobility, no complaints of pain PT-OP-K Range of Motion Start: 08/11/22 17:30 Freq: Status: Active Protocol: Document 08/11/22 10:30 DCW (Rec: 08/11/22 17:53 DCW [id number]) Lumbar Spine Range of Motion Lumbar Spine Active Degrees Testing Position Standing Flexion 70 Extension 30 PT-OP-L Special Tests Start: 08/11/22 17:30 Freq: Status: Active Protocol: Document 08/11/22 10:30 DCW (Rec: 08/11/22 17:53 DCW [id number]) Special Tests Lumbar Spine Special Tests JAMEL Test Results Right hip tightness Vertical Spine Loading Test Results Negative Straight Leg Raise Test Results B HS tightness Standing Flexion Test Results Negative Slump Test Results Negative Manual Traction Test Results Mild relief Compression Test Results Negative A-P Shearing Test Results Negative PT-OP-M Strength Start: 08/11/22 17:30 Freq: Status: Active Protocol: Document 08/11/22 10:30 DCW (Rec: 08/11/22 17:53 DCW [id number]) Hip Strength Hip Manual Muscle Testing Right Flexion (L2) 4 Good Abduction 4 Good Adduction 4 Good External Rotation 5 Normal Internal Rotation 5 Normal Left Flexion (L2) 5 Normal Abduction 5 Normal Adduction 5 Normal External Rotation 5 Normal Internal Rotation 5 Normal Knee Strength Knee Manual Muscle Testing Right Flexion (S2) 5 Normal Extension (L3) 5 Normal Left Flexion (S2) 5 Normal Extension (L3) 5 Normal PT-OP-Q Treatments Start: 08/11/22 17:30 Freq: Status: Active Protocol: Document 09/04/22 14:31 NBM (Rec: 09/04/22 15:17 [facility] [id number]) Therapeutic Exercises Supine Exercises TrA BKFO Side bilateral Reps/Minutes x10 ea Comments cues for no breathholding, and to reset as soon as TrA isn't active TrA SLR Supine Exercise Name PPT /c SLR - HEP Comments cues for TrA and no breathholding TrA Marching Supine Exercise Name PPT /c Marching - HEP Comments cues for TrA and no breathholding TrA Supine Exercise Name PPT /c TrA contraction - HEP Reps/Minutes 10 x 2-3 breath cycles Comments cues for TrA and no breathholding Sidelying Exercises Open Book Stretch Sidelying Exercise Name added to HEP Side bilateral Reps/Minutes x5 AROM, 5x5 SH Hip Abduction Sidelying Exercise Name Hip Abduction Side right Reverse Clamshell Sidelying Exercise Name Reverse Clamshell Side right Comments vc for ecc. control Clamshell Sidelying Exercise Name Clamshell Side right Manual Therapy Treatment Soft Tissue Mobilization QL Body Location R QL Mobilization Type Strumming,Sustained Pressure, Trigger Point Release Intensity/Depth Moderate Body Position Sidelying Piriformis Body Location R Piriformis Mobilization Type Sustained Pressure,Trigger Point Release Intensity/Depth Moderate Body Position Sidelying Self-Care/Home Management Treatment Education Other Education Discussed supported sidelying for sleeping - HO given. Added to HEP: Open Book stretch - HO given. PT-OP-R Modalities Start: 08/11/22 17:30 Freq: Status: Active Protocol: Document 09/04/22 14:31 [facility] (Rec: 09/04/22 15:17 [facility] [id number]) Hot Pack/Cold Pack Treatment Hot Pack Location Lumbar Patient Position Hooklying Treatment Duration (minutes) 15 Patient Tolerance Good PT-OP-T Assessment and Plan Start: 08/11/22 17:30 Freq: Status: Active Protocol: Document 09/04/22 14:31 [facility] (Rec: 09/04/22 15:17 [facility] [id number]) Physical Therapy Assessment Goals Two Impairment Pt experiences radicular symptoms with extended sitting [employer] Developer Goal (LTG) Pt to demonstrate ability to sit in his car for >90 minutes to improve his ability to travel without pain. 09/04/22: Pt reports he can sit a bit longer but still not >90 min. LTG Duration 10/11/22 One Impairment Pt does not have an appropriate home exercise program Short Term Goal (STG) Pt to be independent and compliant with an appropriate HEP STG Duration 09/10/22 Assessment Summary Assessment Treatment focus on HEP review w/ TrA and manual to R piriformis and QL. Pt demonstrates improved ability to performe supine core progression exercises without breathholding, but is still challenged with breathholding and TrA activation with sidelying exercises. Added to HEP: Open Book stretch - HO given. Discussed sidelying sleeping position and adding pillow supports - HO given. Palpable tension in R QL and R piriformis decreases with manual therapy. Physical Therapy Plan Frequency and Duration Frequency of Treatment 2x/Week Plan of Care Start Date 08/11/22 Plan of Care End Date 10/11/22 Therapeutic Interventions Therapeutic Interventions Aquatic Therapy,Home Exercise Program,Joint Mobilizations, Manual Therapy,Neuromuscular Re-education,Patient/Caregiver Education,Self-Care/Home Management,Soft Tissue Mobilization,Therapeutic Activities,Therapeutic Exercises Modalities Cold Pack/Ice Massage,Electric Stimulation,Hot Packs, Ultrasound Next Visit Focus/Plan Next Note Type Treatment Note Next Visit Plan Review stretching HEP and latest Open book stretch. Consider adding QL Doorway stretch, LTR. Manual as needed . POC: Stretching, STM, hip and core strengthening
--- NOTE | 2022-09-07 18:08 | PT.OTN ---
Current Diagnoses Pain in right hip (09/07/22) Intervertebral disc disorders with radiculopathy, lumbar region (09/07/22) Low back pain, unspecified (09/07/22) Physical Therapy Treatment Note PT-OP-A Visit Information Start: 08/11/22 17:30 Freq: Status: Active Protocol: Document 09/07/22 10:32 NBM (Rec: 09/07/22 11:21 NBM [id number]) Out-Patient Physical Therapy Visit Information Visit Information Visit Type Treatment Note Visit Start Time 10:34 Visit Stop Time 11:19 Total Visit Minutes 45 Visit Number 7 Number of REMEDY DEVELOPER Visits 3 Evaluation Information Evaluation Date 08/11/22 PT-OP-B Current Condition Start: 08/11/22 17:30 Freq: Status: Active Protocol: Document 08/11/22 10:30 DCW (Rec: 08/11/22 17:53 DCW [id number]) Current Condition History of Current Condition Onset Date ~1 year history Current Complaints Posterior right hip pain History of Current Condition Pt is a 67 year old male presenting to skilled therapy with complaints of a one year history of posterior right hip pain. Pt reports that he has a long-standing, multi-year history of this same type of pain, but it has just been off and on throughout his life. Starting about a year ago, however, he noticed it was no longer going away, which he mainly noticed following a lot of traveling. Pt report pain is worst with extended sitting , especially in a car or airplane. Additionally has increased pain walking up hill . Reports it does feel better with stretching, but has not had any improvement with massage therapy or animal care technician. Pt reports pain can occasionally go from his posterior hip down his lateral thigh, typically stopping at his knee, but will occasionally get into his foot. Prior Treatments and Tests Lumbar MRI: IMPRESSION: Multiple levels relatively prominent lumbar spine degenerative change can be seen, which are overall worst at the L3-L4 level. Mild levoconvex scoliotic curvature is noted. per Meño Davis M.D. on 07/21/2022 Treatment Goals Patient/Caregiver Goals Decrease back, hip, and leg pain PT-OP-C Subjective Start: 08/11/22 17:30 Freq: Status: Active Protocol: Document 09/07/22 10:32 NBM (Rec: 09/07/22 11:21 [facility] [id number]) OP-PT Subjective Patient Comments Patient Comments Pt reports he started to get spasm in R low back and R hip after last appointment and wonders if it's due to the exercises. He does not have pillows for sidelying sleeping supports. His bed is too low to perform the hip flexor stretch at home. He is getting a wrist surgery Wednesday and expects to be able to attend Wednesday PT appointment based on past experience. PT-OP-F Manual Assessment Start: 08/11/22 17:30 Freq: Status: Active Protocol: Document 08/11/22 10:30 DCW (Rec: 08/11/22 17:53 DCW [id number]) Manual Assessments Soft Tissue Assessment Soft Tissue Mobility Assessment Moderate-severe hypertonia R>L piriformis, R QL, R paraspinals. Joint Mobility Assessment Joint Mobility Assessment Spinal mobility largely WNL, good ROM, appropriate P->A joint mobility, no complaints of pain PT-OP-K Range of Motion Start: 08/11/22 17:30 Freq: Status: Active Protocol: Document 08/11/22 10:30 DCW (Rec: 08/11/22 17:53 DCW [id number]) Lumbar Spine Range of Motion Lumbar Spine Active Degrees Testing Position Standing Flexion 70 Extension 30 PT-OP-L Special Tests Start: 08/11/22 17:30 Freq: Status: Active Protocol: Document 08/11/22 10:30 DCW (Rec: 08/11/22 17:53 DCW [id number]) Special Tests Lumbar Spine Special Tests JAMEL Test Results Right hip tightness Vertical Spine Loading Test Results Negative Straight Leg Raise Test Results B HS tightness Standing Flexion Test Results Negative Slump Test Results Negative Manual Traction Test Results Mild relief Compression Test Results Negative A-P Shearing Test Results Negative PT-OP-M Strength Start: 08/11/22 17:30 Freq: Status: Active Protocol: Document 08/11/22 10:30 DCW (Rec: 08/11/22 17:53 DCW [id number]) Hip Strength Hip Manual Muscle Testing Right Flexion (L2) 4 Good Abduction 4 Good Adduction 4 Good External Rotation 5 Normal Internal Rotation 5 Normal Left Flexion (L2) 5 Normal Abduction 5 Normal Adduction 5 Normal External Rotation 5 Normal Internal Rotation 5 Normal Knee Strength Knee Manual Muscle Testing Right Flexion (S2) 5 Normal Extension (L3) 5 Normal Left Flexion (S2) 5 Normal Extension (L3) 5 Normal PT-OP-Q Treatments Start: 08/11/22 17:30 Freq: Status: Active Protocol: Document 09/07/22 10:32 NBM (Rec: 09/07/22 11:21 [facility] [id number]) Therapeutic Exercises Supine Exercises LTR Supine Exercise Name 1. with ball 2. knee rocks - HEP Side bilateral Equipment Used 55cm ball Reps/Minutes 5 x 5SH Comments vc no arching back - good feedback response Prone Exercises lumbar extension Prone Exercise Name half cobra to full cobra Reps/Minutes x60s ea Comments good feedback response Sidelying Exercises Open Book Stretch Sidelying Exercise Name HEP review Side bilateral Equipment Used added pillows between knees/ ankles Reps/Minutes x5 AROM, 5x5 SH Comments vc to bring shoulders away from ears, R QL pain improves Standing Exercises Hip flexor stretch Standing Exercise Name added to HEP Side bilateral Equipment Used chair, mat table Comments pt unable to use Slick at home. Kitchen Sink Stretch Standing Exercise Name added to HEP Side bilateral Equipment Used counter Reps/Minutes x30 sec QL Doorway stretch Standing Exercise Name added to HEP Side bilateral Reps/Minutes 30 ea Comments vc for longer hold and deep breathing Manual Therapy Treatment Soft Tissue Mobilization QL Body Location R QL Mobilization Type Strumming,Sustained Pressure, Trigger Point Release Intensity/Depth Moderate Body Position Sidelying Piriformis Body Location R Piriformis Mobilization Type Sustained Pressure,Trigger Point Release,Other Intensity/Depth Moderate Body Position Prone Comments Sidelying and prone, use of REMEDY DEVELOPER's elbow for piriformis release Self-Care/Home Management Treatment Education Other Education Reviewed supported sidelying for sleeping, with folded blankets or towels if no pillows. Added to HEP: LTR, hip flexor stretch w/ chair, QL Doorway stretch, Kitchen Sink stretch - HO given. PT-OP-R Modalities Start: 08/11/22 17:30 Freq: Status: Active Protocol: Document 09/07/22 10:32 NBM (Rec: 09/07/22 11:21 [facility] [id number]) Hot Pack/Cold Pack Treatment Hot Pack Location Lumbar R>L and R glutes Patient Position Prone Treatment Duration (minutes) 15 Patient Tolerance Good Comments w/ pillow support under chest. PT-OP-T Assessment and Plan Start: 08/11/22 17:30 Freq: Status: Active Protocol: Document 09/07/22 10:32 [facility] (Rec: 09/07/22 11:21 [facility] [id number]) Physical Therapy Assessment Goals Two Impairment Pt experiences radicular symptoms with extended sitting Cafe Attendant Goal (LTG) Pt to demonstrate ability to sit in his car for >90 minutes to improve his ability to travel without pain. 09/04/22: Pt reports he can sit a bit longer but still not >90 min. LTG Duration 10/11/22 One Impairment Pt does not have an appropriate home exercise program Short Term Goal (STG) Pt to be independent and compliant with an appropriate HEP STG Duration 09/10/22 Assessment Summary Assessment Pt presents with R-sided low back and hip pain which started after last visit. He has a good feedback response to LTR. Pt's IT bands are observed to be very tight in sidelying w/ Open Book stretch so pillow supports are added between knees and ankles to reduce stress on hip, and pt cued for PPT and TrA, with good feedback result. Reviewed supported sidelying for sleeping, and encouraged folded blankets or towels if no pillows. Palpable tightness to R QL and piriformis decreases w/ manual therapy. Added to HEP: LTR, hip flexor stretch w/ chair, QL Doorway stretch, Kitchen Sink stretch - HO given. Physical Therapy Plan Frequency and Duration Frequency of Treatment 2x/Week Plan of Care Start Date 08/11/22 Plan of Care End Date 10/11/22 Therapeutic Interventions Therapeutic Interventions Aquatic Therapy,Home Exercise Program,Joint Mobilizations, Manual Therapy,Neuromuscular Re-education,Patient/Caregiver Education,Self-Care/Home Management,Soft Tissue Mobilization,Therapeutic Activities,Therapeutic Exercises Modalities Cold Pack/Ice Massage,Electric Stimulation,Hot Packs, Ultrasound Next Visit Focus/Plan Next Note Type Treatment Note Next Visit Plan Review stretching HEP and LTR. Manual as needed, finish w/ hot pack. POC: Stretching, STM, hip and core strengthening
--- NOTE | 2022-09-15 18:07 | PT.OTN ---
Current Diagnoses Pain in right hip (09/15/22) Intervertebral disc disorders with radiculopathy, lumbar region (09/15/22) Low back pain, unspecified (09/15/22) Physical Therapy Treatment Note PT-OP-A Visit Information Start: 08/11/22 17:30 Freq: Status: Active Protocol: Document 09/15/22 13:44 NBM (Rec: 09/15/22 14:56 NBM [id number]) Out-Patient Physical Therapy Visit Information Visit Information Visit Type Treatment Note Visit Start Time 13:45 Visit Stop Time 14:35 Total Visit Minutes 50 Visit Number [address] [employer] IN[employer] Visits 4 PT-OP-B Current Condition Start: 08/11/22 17:30 Freq: Status: Active Protocol: Document 08/11/22 10:30 DCW (Rec: 08/11/22 17:53 DCW [id number]) Current Condition History of Current Condition Onset Date ~1 year history Current Complaints Posterior right hip pain History of Current Condition Pt is a 67 year old male presenting to skilled therapy with complaints of a one year history of posterior right hip pain. Pt reports that he has a long-standing, multi-year history of this same type of pain, but it has just been off and on throughout his life. Starting about a year ago, however, he noticed it was no longer going away, which he mainly noticed following a lot of traveling. Pt report pain is worst with extended sitting , especially in a car or airplane. Additionally has increased pain walking up hill . Reports it does feel better with stretching, but has not had any improvement with massage therapy or healthcare customer service. Pt reports pain can occasionally go from his posterior hip down his lateral thigh, typically stopping at his knee, but will occasionally get into his foot. Prior Treatments and Tests Lumbar MRI: IMPRESSION: Multiple levels relatively prominent lumbar spine degenerative change can be seen, which are overall worst at the L3-L4 level. Mild levoconvex scoliotic curvature is noted. per Meño Davis M.D. on 07/21/2022 Treatment Goals Patient/Caregiver Goals Decrease back, hip, and leg pain PT-OP-C Subjective Start: 08/11/22 17:30 Freq: Status: Active Protocol: Document 09/15/22 13:44 NBM (Rec: 09/15/22 14:56 NBM [id number]) OP-PT Subjective Patient Comments Patient Comments Pt states the reverse clam aggravates the piriformis the most. He thinks the ex's may be aggravating his hip and back. He reports his back and side of his right hip is more painful today probably because he was shoveling snow this morning. He notices that the hip pain seems to start when his back tightens up. PT-OP-F Manual Assessment Start: 08/11/22 17:30 Freq: Status: Active Protocol: Document 08/11/22 10:30 DCW (Rec: 08/11/22 17:53 DCW [id number]) Manual Assessments Soft Tissue Assessment Soft Tissue Mobility Assessment Moderate-severe hypertonia R>L piriformis, R QL, R paraspinals. Joint Mobility Assessment Joint Mobility Assessment Spinal mobility largely WNL, good ROM, appropriate P->A joint mobility, no complaints of pain PT-OP-K Range of Motion Start: 08/11/22 17:30 Freq: Status: Active Protocol: Document 08/11/22 10:30 DCW (Rec: 08/11/22 17:53 DCW [id number]) Lumbar Spine Range of Motion Lumbar Spine Active Degrees Testing Position Standing Flexion 70 Extension 30 PT-OP-L Special Tests Start: 08/11/22 17:30 Freq: Status: Active Protocol: Document 08/11/22 10:30 DCW (Rec: 08/11/22 17:53 DCW [id number]) Special Tests Lumbar Spine Special Tests JAMEL Test Results Right hip tightness Vertical Spine Loading Test Results Negative Straight Leg Raise Test Results B HS tightness Standing Flexion Test Results Negative Slump Test Results Negative Manual Traction Test Results Mild relief Compression Test Results Negative A-P Shearing Test Results Negative PT-OP-M Strength Start: 08/11/22 17:30 Freq: Status: Active Protocol: Document 08/11/22 10:30 DCW (Rec: 08/11/22 17:53 DCW [id number]) Hip Strength Hip Manual Muscle Testing Right Flexion (L2) 4 Good Abduction 4 Good Adduction 4 Good External Rotation 5 Normal Internal Rotation 5 Normal Left Flexion (L2) 5 Normal Abduction 5 Normal Adduction 5 Normal External Rotation 5 Normal Internal Rotation 5 Normal Knee Strength Knee Manual Muscle Testing Right Flexion (S2) 5 Normal Extension (L3) 5 Normal Left Flexion (S2) 5 Normal Extension (L3) 5 Normal PT-OP-Q Treatments Start: 08/11/22 17:30 Freq: Status: Active Protocol: Document 09/15/22 13:44 NB (Rec: 09/15/22 14:56 NB [id number]) Therapeutic Exercises Supine Exercises Glute sets Reps/Minutes 5 x 3-5 SH Comments helps glute facilitation for carryover to bridging to relieve LB discomfort Bridge Supine Exercise Name segmental bridge w/ ball & glute squeeze Equipment Used blue/white ball (d/t tight hip flexors) Reps/Minutes x10 Comments Pt apprehensive but had + feedback response when cued for glutes/segmental LTR Supine Exercise Name 2. knee rocks Side bilateral Reps/Minutes 10 x 5SH Comments vc gentle, PPT/no arching back - good feedback response TrA Supine Exercise Name PPT /c TrA contraction Reps/Minutes 10 x 2-3 breath cycles Comments cues for TrA and no breathholding Prone Exercises child's pose Prone Exercise Name fwd/lateral Equipment Used pillow support between hips and feet Reps/Minutes 30 sec ea Comments vc for neck cervical alignment and arms outstretched; + feedback response Sidelying Exercises Open Book Stretch Sidelying Exercise Name discussed only-reminded to add pillows and use core to alleviate discomfort Side bilateral Equipment Used added pillows between knees/ ankles Reps/Minutes x5 AROM, 5x5 SH Comments vc to bring shoulders away from ears, R QL pain improves Reverse Clamshell Sidelying Exercise Name Discussed only - pt d/c'd d/t increased piriformis pain Side right Comments vc for ecc. control Sitting Exercises Self-STM Sitting Exercise Name Piriformis STM - discussion only Side right Comments Tennis ball Manual Therapy Treatment Soft Tissue Mobilization R hip Body Location R TFL, IT Band, glutes, gemellus Mobilization Type Cross-Friction,Instrument Assisted,Rolling,Strumming, Sustained Pressure Intensity/Depth Moderate Body Position Prone Comments gluteal focus along superior border. prone w/ pillow supports and sidelying. rolling pin and therawand to ITB, pt instructed in self-STM QL Body Location R QL Mobilization Type Strumming,Sustained Pressure, Trigger Point Release,Other Intensity/Depth Moderate Body Position Sidelying Comments manual stretch to R QL 3 x 30s Piriformis Body Location R Piriformis Mobilization Type Instrument Assisted,Sustained Pressure,Trigger Point Release ,Other Intensity/Depth Moderate Body Position Standing Comments Pt i/s in self-STM using tennis ball at wall and in supine. Self-Care/Home Management Treatment Education Patient Education Home Exercise Program,Pain Management,Posture Other Education -Pt states he is a visual learner - explained anatomical images of TFL, IT band, and piriformis and related ex's from HEP - pt expresses improved comprehension of HEP. Pt reminded to try sidelying Open Book stretch w/ pillow supports between legs and w/ core engagement. Added to HEP: Glute sets/PPT and Bridging w / ball squeeze and segmental lowering. -Discussed mindfulness for TrA activation with standing activities like shoveling snow to protect low back. -Explained sitting posture especially for car w/ cues for PPT and chin tuck - pt able to demonstrate good seated posture w/ cues. -Self-STM: Pt I/S in self-stm to hip and back at wall or supine w/ ball, and to IT band w/ rolling pin - HO given. PT-OP-R Modalities Start: 08/11/22 17:30 Freq: Status: Active Protocol: Document 09/15/22 13:44 NBM (Rec: 09/15/22 14:56 [facility] [id number]) Hot Pack/Cold Pack Treatment Hot Pack Location Lumbar R>L and R glutes Patient Position Prone Treatment Duration (minutes) 15 Patient Tolerance Good Comments w/ pillow support under chest. PT-OP-T Assessment and Plan Start: 08/11/22 17:30 Freq: Status: Active Protocol: Document 09/15/22 13:44 NBM (Rec: 09/15/22 14:56 [facility] [id number]) Physical Therapy Assessment Goals Two Impairment Pt experiences radicular symptoms with extended sitting Care Home Goal (LTG) Pt to demonstrate ability to sit in his car for >90 minutes to improve his ability to travel without pain. 09/04/22: Pt reports he can sit a bit longer but still not >90 min. 09/15/22: Pt instructed in sitting posture for car w/ cues for PPT and chin tuck - pt able to demonstrate improved seated posture. Also discussed option to use tennis ball for self-STM to piriformis in sitting. LTG Duration 10/11/22 One Impairment Pt does not have an appropriate home exercise program Short Term Goal (STG) Pt to be independent and compliant with an appropriate HEP STG Duration 09/10/22 Assessment Summary Assessment Pt presents with increased R- sided low back pain after shoveling snow this morning, and reports that R piriformis feels aggravated after performing reverse clamshell. Treatment focus on improving low back pain and stiffness w/ lower trunk rotation, stretching and manual therapy; and STM to R hip and IT band. Discussed mindfulness for TrA activation with standing activities like shoveling snow to protect low back. Pt requires cues for strong glute activation w/ bridging, and glute sets provide carryover to bridging with ball squeeze and no low back discomfort. Explained sitting posture especially for car w/ cues for PPT and chin tuck - pt able to demonstrate good seated posture w/ cues. Pt reminded to try sidelying Open Book stretch w/ pillow supports between legs and w/ core engagement. Pt reported good feedback response to self-STM w/ ball at wall. Reverse clamshell on hold per pt due to R hip pain. Added to HEP: Gluteal set/PPT, Bridging w/ ball squeeze, and self-STM w/ rolling pin and tennis ball - HO given. Physical Therapy Plan Frequency and Duration Frequency of Treatment 2x/Week Plan of Care Start Date 08/11/22 Plan of Care End Date 10/11/22 Therapeutic Interventions Therapeutic Interventions Aquatic Therapy,Home Exercise Program,Joint Mobilizations, Manual Therapy,Neuromuscular Re-education,Patient/Caregiver Education,Self-Care/Home Management,Soft Tissue Mobilization,Therapeutic Activities,Therapeutic Exercises Modalities Cold Pack/Ice Massage,Electric Stimulation,Hot Packs, Ultrasound Next Visit Focus/Plan Next Note Type Treatment Note Next Visit Plan Review self-STM and stretching HEP, open book w/ pillow supports. Consider IT band stretch. Manual as needed, finish w/ hot pack. POC: Stretching, STM, hip and core strengthening
--- NOTE | 2022-09-23 11:12 | PT.OTN ---
Current Diagnoses Pain in right hip (09/23/22) Intervertebral disc disorders with radiculopathy, lumbar region (09/23/22) Low back pain, unspecified (09/23/22) Physical Therapy Treatment Note PT-OP-A Visit Information Start: 08/11/22 17:30 Freq: Status: Active Protocol: Document 09/23/22 10:30 DCW (Rec: 09/23/22 10:52 DCW [id number]) Out-Patient Physical Therapy Visit Information Visit Information Visit Type Treatment Note Visit Start Time 10:30 Visit Stop Time 11:15 Total Visit Minutes 45 Visit Number 9 Number of [employer] Visits 0 Evaluation Information Evaluation Date 08/11/22 PT-OP-B Current Condition Start: 08/11/22 17:30 Freq: Status: Active Protocol: Document 08/11/22 10:30 DCW (Rec: 08/11/22 17:53 DCW [id number]) Current Condition History of Current Condition Onset Date ~1 year history Current Complaints Posterior right hip pain History of Current Condition Pt is a 67 year old male presenting to skilled therapy with complaints of a one year history of posterior right hip pain. Pt reports that he has a long-standing, multi-year history of this same type of pain, but it has just been off and on throughout his life. Starting about a year ago, however, he noticed it was no longer going away, which he mainly noticed following a lot of traveling. Pt report pain is worst with extended sitting , especially in a car or airplane. Additionally has increased pain walking up hill . Reports it does feel better with stretching, but has not had any improvement with massage therapy or care support representative. Pt reports pain can occasionally go from his posterior hip down his lateral thigh, typically stopping at his knee, but will occasionally get into his foot. Prior Treatments and Tests Lumbar MRI: IMPRESSION: Multiple levels relatively prominent lumbar spine degenerative change can be seen, which are overall worst at the L3-L4 level. Mild levoconvex scoliotic curvature is noted. per Meño Davis M.D. on 07/21/2022 Treatment Goals Patient/Caregiver Goals Decrease back, hip, and leg pain PT-OP-C Subjective Start: 08/11/22 17:30 Freq: Status: Active Protocol: Document 09/23/22 10:30 DCW (Rec: 09/23/22 10:52 DCW [id number]) OP-PT Subjective Patient Comments Patient Comments Its a lot better than when we started. PT-OP-F Manual Assessment Start: 08/11/22 17:30 Freq: Status: Active Protocol: Document 08/11/22 10:30 DCW (Rec: 08/11/22 17:53 DCW [id number]) Manual Assessments Soft Tissue Assessment Soft Tissue Mobility Assessment Moderate-severe hypertonia R>L piriformis, R QL, R paraspinals. Joint Mobility Assessment Joint Mobility Assessment Spinal mobility largely WNL, good ROM, appropriate P->A joint mobility, no complaints of pain PT-OP-K Range of Motion Start: 08/11/22 17:30 Freq: Status: Active Protocol: Document 08/11/22 10:30 DCW (Rec: 08/11/22 17:53 DCW [id number]) Lumbar Spine Range of Motion Lumbar Spine Active Degrees Testing Position Standing Flexion 70 Extension 30 PT-OP-L Special Tests Start: 08/11/22 17:30 Freq: Status: Active Protocol: Document 08/11/22 10:30 DCW (Rec: 08/11/22 17:53 DCW [id number]) Special Tests Lumbar Spine Special Tests JAMEL Test Results Right hip tightness Vertical Spine Loading Test Results Negative Straight Leg Raise Test Results B HS tightness Standing Flexion Test Results Negative Slump Test Results Negative Manual Traction Test Results Mild relief Compression Test Results Negative A-P Shearing Test Results Negative PT-OP-M Strength Start: 08/11/22 17:30 Freq: Status: Active Protocol: Document 08/11/22 10:30 DCW (Rec: 08/11/22 17:53 DCW [id number]) Hip Strength Hip Manual Muscle Testing Right Flexion (L2) 4 Good Abduction 4 Good Adduction 4 Good External Rotation 5 Normal Internal Rotation 5 Normal Left Flexion (L2) 5 Normal Abduction 5 Normal Adduction 5 Normal External Rotation 5 Normal Internal Rotation 5 Normal Knee Strength Knee Manual Muscle Testing Right Flexion (S2) 5 Normal Extension (L3) 5 Normal Left Flexion (S2) 5 Normal Extension (L3) 5 Normal PT-OP-Q Treatments Start: 08/11/22 17:30 Freq: Status: Active Protocol: Document 09/23/22 10:30 DCW (Rec: 09/23/22 10:52 DCW [id number]) Therapeutic Exercises Supine Exercises Hamstring Supine Exercise Name HS stretch - HEP Side bilateral Comments Contract/Relax x 10 Piriformis Stretch Supine Exercise Name Figure-4 - HEP Side bilateral Manual Therapy Treatment Soft Tissue Mobilization QL Body Location R QL Mobilization Type Strumming,Sustained Pressure, Trigger Point Release Intensity/Depth Moderate Body Position Sidelying Piriformis Body Location R Piriformis Mobilization Type Sustained Pressure,Trigger Point Release,Other Intensity/Depth Moderate Body Position Prone Comments Sidelying and prone, use of [employer]PER[employer]'s elbow for piriformis release PT-OP-R Modalities Start: 08/11/22 17:30 Freq: Status: Active Protocol: Document 09/15/22 13:44 NBM (Rec: 09/15/22 14:56 NBM [id number]) Hot Pack/Cold Pack Treatment Hot Pack Location Lumbar R>L and R glutes Patient Position Prone Treatment Duration (minutes) 15 Patient Tolerance Good Comments w/ pillow support under chest. PT-OP-T Assessment and Plan Start: 08/11/22 17:30 Freq: Status: Active Protocol: Document 09/23/22 10:30 DCW (Rec: 09/23/22 10:53 DCW [id number]) Physical Therapy Assessment Goals Two Impairment Pt experiences radicular symptoms with extended sitting Prison Goal (LTG) Pt to demonstrate ability to sit in his car for >90 minutes to improve his ability to travel without pain. 09/04/22: Pt reports he can sit a bit longer but still not >90 min. 09/15/22: Pt instructed in sitting posture for car w/ cues for PPT and chin tuck - pt able to demonstrate improved seated posture. Also discussed option to use tennis ball for self-STM to piriformis in sitting. LTG Duration 10/11/22 One Impairment Pt does not have an appropriate home exercise program Short Term Goal (STG) Pt to be independent and compliant with an appropriate HEP STG Duration 09/10/22 Assessment Summary Assessment Pt having less frequent and less severe raducular pain, however it is still occurring. Pt would likely benefit from continued treatment focusing on improved hip and core strength, decreased tone, and improved mobility. Physical Therapy Plan Frequency and Duration Frequency of Treatment 2x/Week Plan of Care Start Date 08/11/22 Plan of Care End Date 10/11/22 Therapeutic Interventions Therapeutic Interventions Aquatic Therapy,Home Exercise Program,Joint Mobilizations, Manual Therapy,Neuromuscular Re-education,Patient/Caregiver Education,Self-Care/Home Management,Soft Tissue Mobilization,Therapeutic Activities,Therapeutic Exercises Modalities Cold Pack/Ice Massage,Electric Stimulation,Hot Packs, Ultrasound Next Visit Focus/Plan Next Note Type Treatment Note Next Visit Plan Review self-STM and stretching HEP, open book w/ pillow supports. Consider IT band stretch. Manual as needed, finish w/ hot pack. POC: Stretching, STM, hip and core strengthening
--- NOTE | 2022-09-25 14:35 | PT.OTN ---
Current Diagnoses Pain in right hip (09/25/22) Intervertebral disc disorders with radiculopathy, lumbar region (09/25/22) Low back pain, unspecified (09/25/22) Physical Therapy Treatment Note PT-OP-A Visit Information Start: 08/11/22 17:30 Freq: Status: Active Protocol: Document 09/25/22 13:49 NBM (Rec: 09/25/22 14:35 NBM [id number]) Out-Patient Physical Therapy Visit Information Visit Information Visit Type Treatment Note Visit Start Time 13:48 Visit Stop Time 14:30 Total Visit Minutes 42 Visit Number 10 Number of DOLL EYE SETTER Visits 1 PT-OP-B Current Condition Start: 08/11/22 17:30 Freq: Status: Active Protocol: Document 08/11/22 10:30 DCW (Rec: 08/11/22 17:53 DCW [id number]) Current Condition History of Current Condition Onset Date ~1 year history Current Complaints Posterior right hip pain History of Current Condition Pt is a 67 year old male presenting to skilled therapy with complaints of a one year history of posterior right hip pain. Pt reports that he has a long-standing, multi-year history of this same type of pain, but it has just been off and on throughout his life. Starting about a year ago, however, he noticed it was no longer going away, which he mainly noticed following a lot of traveling. Pt report pain is worst with extended sitting , especially in a car or airplane. Additionally has increased pain walking up hill . Reports it does feel better with stretching, but has not had any improvement with massage therapy or career technical counselor. Pt reports pain can occasionally go from his posterior hip down his lateral thigh, typically stopping at his knee, but will occasionally get into his foot. Prior Treatments and Tests Lumbar MRI: IMPRESSION: Multiple levels relatively prominent lumbar spine degenerative change can be seen, which are overall worst at the L3-L4 level. Mild levoconvex scoliotic curvature is noted. per Meño Davis M.D. on 07/21/2022 Treatment Goals Patient/Caregiver Goals Decrease back, hip, and leg pain PT-OP-C Subjective Start: 08/11/22 17:30 Freq: Status: Active Protocol: Document 09/25/22 13:49 NBM (Rec: 09/25/22 14:35 NBM [id number]) OP-PT Subjective Patient Comments Patient Comments Pt states his back on R is hurting more than his hip and causing him to limp. I think after I sit in the care it just takes awhile to get my back loosened up. Overall I think I'm improving. Pt reports focusing on glute sqeeze with bridge has helped w/ back discomfort. PT-OP-F Manual Assessment Start: 08/11/22 17:30 Freq: Status: Active Protocol: Document 08/11/22 10:30 DCW (Rec: 08/11/22 17:53 DCW [id number]) Manual Assessments Soft Tissue Assessment Soft Tissue Mobility Assessment Moderate-severe hypertonia R>L piriformis, R QL, R paraspinals. Joint Mobility Assessment Joint Mobility Assessment Spinal mobility largely WNL, good ROM, appropriate P->A joint mobility, no complaints of pain PT-OP-K Range of Motion Start: 08/11/22 17:30 Freq: Status: Active Protocol: Document 08/11/22 10:30 DCW (Rec: 08/11/22 17:53 DCW [id number]) Lumbar Spine Range of Motion Lumbar Spine Active Degrees Testing Position Standing Flexion 70 Extension 30 PT-OP-L Special Tests Start: 08/11/22 17:30 Freq: Status: Active Protocol: Document 08/11/22 10:30 DCW (Rec: 08/11/22 17:53 DCW [id number]) Special Tests Lumbar Spine Special Tests JAMEL Test Results Right hip tightness Vertical Spine Loading Test Results Negative Straight Leg Raise Test Results B HS tightness Standing Flexion Test Results Negative Slump Test Results Negative Manual Traction Test Results Mild relief Compression Test Results Negative A-P Shearing Test Results Negative PT-OP-M Strength Start: 08/11/22 17:30 Freq: Status: Active Protocol: Document 08/11/22 10:30 DCW (Rec: 08/11/22 17:53 DCW [id number]) Hip Strength Hip Manual Muscle Testing Right Flexion (L2) 4 Good Abduction 4 Good Adduction 4 Good External Rotation 5 Normal Internal Rotation 5 Normal Left Flexion (L2) 5 Normal Abduction 5 Normal Adduction 5 Normal External Rotation 5 Normal Internal Rotation 5 Normal Knee Strength Knee Manual Muscle Testing Right Flexion (S2) 5 Normal Extension (L3) 5 Normal Left Flexion (S2) 5 Normal Extension (L3) 5 Normal PT-OP-Q Treatments Start: 08/11/22 17:30 Freq: Status: Active Protocol: Document 09/25/22 13:49 NBM (Rec: 09/25/22 14:35 [facility] [id number]) Cardio Equipment Recumbent Elliptical (Biodex) Duration (Minutes) 5 Resistance 3 Seat Position 9 Other back feels looser but still a twinge Therapeutic Exercises Supine Exercises IT Band stretch Side bilateral Equipment Used c/ strap Reps/Minutes x60s ea Comments R tighter than L - good feedback response Glute sets Reps/Minutes 5 x 3-5 SH Comments helps glute facilitation for carryover to bridging to relieve LB discomfort Bridge Supine Exercise Name segmental bridge w/ ball & glute squeeze Equipment Used blue/white ball (d/t tight hip flexors) Reps/Minutes x10 LTR Supine Exercise Name 2. knee rocks Side bilateral Reps/Minutes 10 x 5SH Comments vc gentle, PPT/no arching back - good feedback response TrA BKFO Side bilateral Reps/Minutes x10 ea Comments cues for no breathholding TrA SLR Supine Exercise Name PPT /c SLR Comments cues for no breathholding, controlled ecc through end- range TrA Marching Supine Exercise Name PPT /c Marching and recip UE ( bug) Comments cues for TrA and no breathholding Prone Exercises quadruped Prone Exercise Name 1. cat/cow 2. alt UE reach 3. alt LE ext Side bilateral Reps/Minutes x10 ea Comments cues for initial form, hip rotation- improves self- awareness lumbar extension Prone Exercise Name propped on pillows Comments w/ heat EOS PT-OP-R Modalities Start: 08/11/22 17:30 Freq: Status: Active Protocol: Document 09/25/22 13:49 NBM (Rec: 09/25/22 14:35 [facility] [id number]) Hot Pack/Cold Pack Treatment Hot Pack Location Lumbar R>L and R glutes Patient Position Prone Treatment Duration (minutes) 15 Patient Tolerance Good Comments w/ pillow support under chest. PT-OP-T Assessment and Plan Start: 08/11/22 17:30 Freq: Status: Active Protocol: Document 09/25/22 13:49 NBM (Rec: 09/25/22 14:35 [facility] [id number]) Physical Therapy Assessment Impairments Impairments Functional Activities, Functional Mobility,Pain,ROM, Sensation,Soft Tissue Mobility ,Strength,Tone Goals Two Impairment Pt experiences radicular symptoms with extended sitting Residential Goal (LTG) Pt to demonstrate ability to sit in his car for >90 minutes to improve his ability to travel without pain. 09/04/22: Pt reports he can sit a bit longer but still not >90 min. 09/15/22: Pt instructed in sitting posture for car w/ cues for PPT and chin tuck - pt able to demonstrate improved seated posture. Also discussed option to use tennis ball for self-STM to piriformis in sitting. 09/25/22: Pt notices when sitting in care PPT feels better. He has not tried tennis ball in car yet and reports increased stiffness after sitting in car. LTG Duration 10/11/22 One Impairment Pt does not have an appropriate home exercise program Short Term Goal (STG) Pt to be independent and compliant with an appropriate HEP STG Duration 09/10/22 Assessment Summary Assessment Pt tolerates core progression well and reports decreased back stiffness end of session. Pt requires cues for glute activation and breathholding w / core ex's. Physical Therapy Plan Frequency and Duration Frequency of Treatment 2x/Week Plan of Care Start Date 08/11/22 Plan of Care End Date 10/11/22 Therapeutic Interventions Therapeutic Interventions Aquatic Therapy,Home Exercise Program,Joint Mobilizations, Manual Therapy,Neuromuscular Re-education,Patient/Caregiver Education,Self-Care/Home Management,Soft Tissue Mobilization,Therapeutic Activities,Therapeutic Exercises Modalities Cold Pack/Ice Massage,Electric Stimulation,Hot Packs, Ultrasound Next Visit Focus/Plan Next Note Type Treatment Note Next Visit Plan Review self-STM and stretching HEP, open book w/ pillow supports. Consider IT band stretch. Manual as needed, finish w/ hot pack. POC: Stretching, STM, hip and core strengthening
--- NOTE | 2022-09-29 09:48 | PT.OTN ---
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 Pt reports that he has a long-standing, multi-year history of this same type of pain, but it has just been off and on throughout his life. Starting about a year ago, however, he noticed it was no longer going away, which he mainly noticed following a lot of traveling. Pt report pain is worst with extended sitting , especially in a car or airplane. Additionally has increased pain walking up hill . Reports it does feel better with stretching, but has not had any improvement with massage therapy or day care assistant. Pt reports pain can occasionally go from his posterior hip down his lateral thigh, typically stopping at his knee, but will occasionally get into his foot. Prior Treatments and Tests Lumbar MRI: IMPRESSION: Multiple levels relatively prominent lumbar spine degenerative change can be seen, which are overall worst at the L3-L4 level. Mild levoconvex scoliotic curvature is noted. per Meño Davis M.D. on 07/21/2022 Treatment Goals Patient/Caregiver Goals Decrease back, hip, and leg pain PT-OP-C Subjective Start: 08/11/22 17:30 Freq: Status: Active Protocol: Document 09/29/22 09:09 NBM (Rec: 09/29/22 09:48 [facility] [id number]) OP-PT Subjective Patient Comments Patient Comments Pt states he is progressing overall and better able to go up inclines such as hiking and stairs. He states both back and R hip pain have improved. Pt reports using tennis ball more for self-STM with success . PT-OP-F Manual Assessment Start: 08/11/22 17:30 Freq: Status: Active Protocol: Document 08/11/22 10:30 DCW (Rec: 08/11/22 17:53 DCW [id number]) Manual Assessments Soft Tissue Assessment Soft Tissue Mobility Assessment Moderate-severe hypertonia R>L piriformis, R QL, R paraspinals. Joint Mobility Assessment Joint Mobility Assessment Spinal mobility largely WNL, good ROM, appropriate P->A joint mobility, no complaints of pain PT-OP-K Range of Motion Start: 08/11/22 17:30 Freq: Status: Active Protocol: Document 08/11/22 10:30 DCW (Rec: 08/11/22 17:53 DCW [id number]) Lumbar Spine Range of Motion Lumbar Spine Active Degrees Testing Position Standing Flexion 70 Extension 30 PT-OP-L Special Tests Start: 08/11/22 17:30 Freq: Status: Active Protocol: Document 08/11/22 10:30 DCW (Rec: 08/11/22 17:53 DCW [id number]) Special Tests Lumbar Spine Special Tests JAMEL Test Results Right hip tightness Vertical Spine Loading Test Results Negative Straight Leg Raise Test Results B HS tightness Standing Flexion Test Results Negative Slump Test Results Negative Manual Traction Test Results Mild relief Compression Test Results Negative A-P Shearing Test Results Negative PT-OP-M Strength Start: 08/11/22 17:30 Freq: Status: Active Protocol: Document 08/11/22 10:30 DCW (Rec: 08/11/22 17:53 DCW [id number]) Hip Strength Hip Manual Muscle Testing Right Flexion (L2) 4 Good Abduction 4 Good Adduction 4 Good External Rotation 5 Normal Internal Rotation 5 Normal Left Flexion (L2) 5 Normal Abduction 5 Normal Adduction 5 Normal External Rotation 5 Normal Internal Rotation 5 Normal Knee Strength Knee Manual Muscle Testing Right Flexion (S2) 5 Normal Extension (L3) 5 Normal Left Flexion (S2) 5 Normal Extension (L3) 5 Normal PT-OP-Q Treatments Start: 08/11/22 17:30 Freq: Status: Active Protocol: Document 09/29/22 09:09 [facility] (Rec: 09/29/22 09:48 [facility] [id number]) Therapeutic Exercises Supine Exercises Glute sets Reps/Minutes 5 x 3-5 SH Comments helps glute facilitation for carryover to bridging to relieve LB discomfort Bridge Supine Exercise Name segmental bridge w/ ball & glute squeeze Equipment Used blue/white ball (d/t tight hip flexors) Reps/Minutes x10 TrA BKFO Supine Exercise Name TrA focus Side bilateral Reps/Minutes x10 ea Comments cues for no breathholding Hip Flexors Supine Exercise Name Hip Flexor stretch Side right Comments 1. half kneel lunge Prone Exercises Glutes Prone Exercise Name ceiling stompers knee bent to 90 deg Resistance AROM Reps/Minutes x10 ea Comments vc for breatholding quadruped Prone Exercise Name 1. cat/cow 2. alt UE reach 3. alt LE ext Side bilateral Equipment Used tissue box for biofeedback for hip rotation w/ LE Reps/Minutes x10 ea Comments cues for initial form, hip rotation- improves self- awareness child's pose Prone Exercise Name fwd/lateral Reps/Minutes 30 sec ea Comments vc for neck cervical alignment and arms outstretched; + feedback response lumbar extension Prone Exercise Name press up Reps/Minutes 3' Self-Care/Home Management Treatment Education Patient Education Home Exercise Program,Pain Management,Posture Other Education Hip flexor stretch half kneel lunge added to HEP - HO declined. Explained lumbar spinal n. anatomy and disc bulge vs herniation with visual aid. PT-OP-R Modalities Start: 08/11/22 17:30 Freq: Status: Active Protocol: Document 09/29/22 09:09 [facility] (Rec: 09/29/22 09:48 [facility] [id number]) Hot Pack/Cold Pack Treatment Hot Pack Location Lumbar R>L and R glutes Patient Position Prone Treatment Duration (minutes) 15 Patient Tolerance Good Comments w/ pillow support under chest. PT-OP-T Assessment and Plan Start: 08/11/22 17:30 Freq: Status: Active Protocol: Document 09/29/22 09:09 [facility] (Rec: 09/29/22 09:48 [facility] [id number]) Physical Therapy Assessment Goals Two Impairment Pt experiences radicular symptoms with extended sitting [employer] Mixer Goal (LTG) Pt to demonstrate ability to sit in his car for >90 minutes to improve his ability to travel without pain. 09/04/22: Pt reports he can sit a bit longer but still not >90 min. 09/15/22: Pt instructed in sitting posture for car w/ cues for PPT and chin tuck - pt able to demonstrate improved seated posture. Also discussed option to use tennis ball for self-STM to piriformis in sitting. 09/25/22: Pt notices when sitting in care PPT feels better. He has not tried tennis ball in car yet and reports increased stiffness after sitting in car. LTG Duration 10/11/22 One Impairment Pt does not have an appropriate home exercise program Short Term Goal (STG) Pt to be independent and compliant with an appropriate HEP STG Duration 09/10/22 Assessment Summary Assessment Treatment focus on hip flexor tightness and glute activation . Pt continues to demonstrate increased self-awareness of breathholding, and improves with stretching when cued for holding by breath cycles instead of time. Hip flexor stretch half kneel lunge added to HEP - HO declined. Physical Therapy Plan Frequency and Duration Frequency of Treatment 2x/Week Plan of Care Start Date 08/11/22 Plan of Care End Date 10/11/22 Therapeutic Interventions Therapeutic Interventions Aquatic Therapy,Home Exercise Program,Joint Mobilizations, Manual Therapy,Neuromuscular Re-education,Patient/Caregiver Education,Self-Care/Home Management,Soft Tissue Mobilization,Therapeutic Activities,Therapeutic Exercises Modalities Cold Pack/Ice Massage,Electric Stimulation,Hot Packs, Ultrasound Next Visit Focus/Plan Next Note Type Treatment Note Next Visit Plan Pt interested in starting at gym. Consider multifidi stepouts w/ paloff press and resisted bandwalking. Review open book w/ pillow supports. Manual as needed, finish w/ hot pack. POC: Stretching, STM, hip and core strengthening
--- NOTE | 2022-10-01 17:33 | PT.OTN ---
Current Diagnoses Pain in right hip (10/01/22) Intervertebral disc disorders with radiculopathy, lumbar region (10/01/22) Low back pain, unspecified (10/01/22) Physical Therapy Treatment Note PT-OP-A Visit Information Start: 08/11/22 17:30 Freq: Status: Active Protocol: Document 10/01/22 16:45 DCW (Rec: 10/01/22 17:33 DCW [id number]) Out-Patient Physical Therapy Visit Information Visit Information Visit Type Progress Note Visit Start Time 16:45 Visit Stop Time 17:30 Total Visit Minutes 45 Visit Number 12 Number of ORCHESTRA LEADER Visits 0 Evaluation Information Evaluation Date 08/11/22 PT-OP-B Current Condition Start: 08/11/22 17:30 Freq: Status: Active Protocol: Document 08/11/22 10:30 DCW (Rec: 08/11/22 17:53 DCW [id number]) Current Condition History of Current Condition Onset Date ~1 year history Current Complaints Posterior right hip pain History of Current Condition Pt is a 67 year old male presenting to skilled therapy with complaints of a one year history of posterior right hip pain. Pt reports that he has a long-standing, multi-year history of this same type of pain, but it has just been off and on throughout his life. Starting about a year ago, however, he noticed it was no longer going away, which he mainly noticed following a lot of traveling. Pt report pain is worst with extended sitting , especially in a car or airplane. Additionally has increased pain walking up hill . Reports it does feel better with stretching, but has not had any improvement with massage therapy or medicare sales representative. Pt reports pain can occasionally go from his posterior hip down his lateral thigh, typically stopping at his knee, but will occasionally get into his foot. Prior Treatments and Tests Lumbar MRI: IMPRESSION: Multiple levels relatively prominent lumbar spine degenerative change can be seen, which are overall worst at the L3-L4 level. Mild levoconvex scoliotic curvature is noted. per Meño Davis M.D. on 07/21/2022 Treatment Goals Patient/Caregiver Goals Decrease back, hip, and leg pain PT-OP-C Subjective Start: 08/11/22 17:30 Freq: Status: Active Protocol: Document 10/01/22 16:45 DCW (Rec: 10/01/22 17:33 DCW [id number]) OP-PT Subjective Patient Comments Patient Comments Pt continues to feel significantly better overall, but still has some complaints of pain, although no longer experiencing shooting pain into his thigh or foot. PT-OP-F Manual Assessment Start: 08/11/22 17:30 Freq: Status: Active Protocol: Document 10/01/22 16:45 DCW (Rec: 10/01/22 17:05 DCW [id number]) Manual Assessments Soft Tissue Assessment Soft Tissue Mobility Assessment Mild-moderate hypertonia R>L piriformis, R QL, R paraspinals. PT-OP-K Range of Motion Start: 08/11/22 17:30 Freq: Status: Active Protocol: Document 10/01/22 16:45 DCW (Rec: 10/01/22 17:05 DCW [id number]) Lumbar Spine Range of Motion Lumbar Spine Active Degrees Testing Position Standing Flexion 75 Extension 45 PT-OP-L Special Tests Start: 08/11/22 17:30 Freq: Status: Active Protocol: Document 10/01/22 16:45 DCW (Rec: 10/01/22 17:05 DCW [id number]) Special Tests Lumbar Spine Special Tests JAMEL Test Results Right hip tightness Vertical Spine Loading Test Results Negative Straight Leg Raise Test Results B HS tightness Standing Flexion Test Results Negative Slump Test Results Negative Manual Traction Test Results Mild relief Compression Test Results Negative A-P Shearing Test Results Negative PT-OP-M Strength Start: 08/11/22 17:30 Freq: Status: Active Protocol: Document 10/01/22 16:45 DCW (Rec: 10/01/22 17:05 DCW [id number]) Hip Strength Hip Manual Muscle Testing Right Flexion (L2) 4+ Good+ Abduction 4 Good Adduction 4+ Good+ External Rotation 5 Normal Internal Rotation 5 Normal Left Flexion (L2) 5 Normal Abduction 5 Normal Adduction 5 Normal External Rotation 5 Normal Internal Rotation 5 Normal Knee Strength Knee Manual Muscle Testing Right Flexion (S2) 5 Normal Extension (L3) 5 Normal Left Flexion (S2) 5 Normal Extension (L3) 5 Normal PT-OP-Q Treatments Start: 08/11/22 17:30 Freq: Status: Active Protocol: Document 10/01/22 16:45 DCW (Rec: 10/01/22 17:33 DCW [id number]) Therapeutic Exercises Supine Exercises IT Band stretch Side bilateral Equipment Used c/ strap Reps/Minutes x60s ea Comments R tighter than L - good feedback response Bridge Supine Exercise Name DL->SL Bridge PT-OP-R Modalities Start: 08/11/22 17:30 Freq: Status: Active Protocol: Document 09/29/22 09:09 NBM (Rec: 09/29/22 09:48 NBM [id number]) Hot Pack/Cold Pack Treatment Hot Pack Location Lumbar R>L and R glutes Patient Position Prone Treatment Duration (minutes) 15 Patient Tolerance Good Comments w/ pillow support under chest. PT-OP-T Assessment and Plan Start: 08/11/22 17:30 Freq: Status: Active Protocol: Document 10/01/22 16:45 DCW (Rec: 10/01/22 17:33 DCW [id number]) Physical Therapy Assessment Impairments Impairments Functional Activities, Functional Mobility,Pain,ROM, Sensation,Soft Tissue Mobility ,Strength,Tone Goals Two Impairment Pt experiences radicular symptoms with extended sitting Residential Goal (LTG) Pt to demonstrate ability to sit in his car for >90 minutes to improve his ability to travel without pain. 09/04/22: Pt reports he can sit a bit longer but still not >90 min. 09/15/22: Pt instructed in sitting posture for car w/ cues for PPT and chin tuck - pt able to demonstrate improved seated posture. Also discussed option to use tennis ball for self-STM to piriformis in sitting. 09/25/22: Pt notices when sitting in care PPT feels better. He has not tried tennis ball in car yet and reports increased stiffness after sitting in car. LTG Duration 11/26/22 - Improving One Impairment Pt does not have an appropriate home exercise program Short Term Goal (STG) Pt to be independent and compliant with an appropriate HEP STG Duration Met Assessment Summary Assessment Pt showing significant progress with overall symptoms , have largely eliminated radicular pain into right leg, continues to experience some increased tone and soreness in right posterior hip and low back. Pt will likely benefit from continues therapy focusing on improving tone, mobility, and strength of hips and core. Physical Therapy Plan Frequency and Duration Frequency of Treatment 2x/Week Plan of Care Start Date 10/01/22 Plan of Care End Date 11/26/22 Therapeutic Interventions Therapeutic Interventions Aquatic Therapy,Home Exercise Program,Joint Mobilizations, Manual Therapy,Neuromuscular Re-education,Patient/Caregiver Education,Self-Care/Home Management,Soft Tissue Mobilization,Therapeutic Activities,Therapeutic Exercises Modalities Cold Pack/Ice Massage,Electric Stimulation,Hot Packs, Ultrasound Next Visit Focus/Plan Next Note Type Treatment Note Next Visit Plan Pt interested in starting at gym. Consider multifidi stepouts w/ paloff press and resisted bandwalking. Review open book w/ pillow supports. Manual as needed, finish w/ hot pack. POC: Stretching, STM, hip and core strengthening
--- NOTE | 2022-10-01 17:33 | PT.OPPOC ---
Physical, Occupational & Speech Therapy At [facility] Current Diagnoses Pain in right hip (10/01/22) Intervertebral disc disorders with radiculopathy, lumbar region (10/01/22) Low back pain, unspecified (10/01/22) Visit Care Team Role Provider Type Jane Ellison DO Attending Provider Physician Family Provider Primary Care Provider Referring Provider Specialty: Medical Address: [address] [place] [address], [address], [place], [address] Email: [email or web address] Plan Of Care PT-OP-T Assessment and Plan Start: 08/11/22 17:30 Freq: Status: Active Protocol: Document 10/01/22 16:45 DCW (Rec: 10/01/22 17:33 DCW [id number]) Physical Therapy Assessment Impairments Impairments Functional Activities, Functional Mobility,Pain,ROM, Sensation,Soft Tissue Mobility ,Strength,Tone Goals Two Impairment Pt experiences radicular symptoms with extended sitting Investigative Shopper Goal (LTG) Pt to demonstrate ability to sit in his car for >90 minutes to improve his ability to travel without pain. 09/04/22: Pt reports he can sit a bit longer but still not >90 min. 09/15/22: Pt instructed in sitting posture for car w/ cues for PPT and chin tuck - pt able to demonstrate improved seated posture. Also discussed option to use tennis ball for self-STM to piriformis in sitting. 09/25/22: Pt notices when sitting in care PPT feels better. He has not tried tennis ball in car yet and reports increased stiffness after sitting in car. LTG Duration 11/26/22 - Improving One Impairment Pt does not have an appropriate home exercise program Short Term Goal (STG) Pt to be independent and compliant with an appropriate HEP STG Duration Met Assessment Summary Assessment Pt showing significant progress with overall symptoms , have largely eliminated radicular pain into right leg, continues to experience some increased tone and soreness in right posterior hip and low back. Pt will likely benefit from continues therapy focusing on improving tone, mobility, and strength of hips and core. Physical Therapy Plan Frequency and Duration Frequency of Treatment 2x/Week Plan of Care Start Date 10/01/22 Plan of Care End Date 11/26/22 Therapeutic Interventions Therapeutic Interventions Aquatic Therapy,Home Exercise Program,Joint Mobilizations, Manual Therapy,Neuromuscular Re-education,Patient/Caregiver Education,Self-Care/Home Management,Soft Tissue Mobilization,Therapeutic Activities,Therapeutic Exercises Modalities Cold Pack/Ice Massage,Electric Stimulation,Hot Packs, Ultrasound Next Visit Focus/Plan Next Note Type Treatment Note Next Visit Plan Pt interested in starting at gym. Consider multifidi stepouts w/ paloff press and resisted bandwalking. Review open book w/ pillow supports. Manual as needed, finish w/ hot pack. POC: Stretching, STM, hip and core strengthening Plan of Care Dates Plan of Care Start Date 10/01/22 Plan of Care End Date 11/26/22 Electronically Signed by: Yogesh Kapadia, PT 10/01/22 2302 If you are in agreement with this Plan of Care, please return a signed and dated copy. I have reviewed this Plan of Care and certify that the skilled therapy services above are required to meet the patient?s needs. Physician Signature Date Printed Name and Credentials Clinical Instructor Signature Printed Name and Credentials
--- NOTE | 2022-10-12 10:32 | PT.OTN ---
Current Diagnoses Pain in right hip (10/12/22) Intervertebral disc disorders with radiculopathy, lumbar region (10/12/22) Low back pain, unspecified (10/12/22) Physical Therapy Treatment Note PT-OP-A Visit Information Start: 08/11/22 17:30 Freq: Status: Active Protocol: Document 10/12/22 09:51 SP (Rec: 10/12/22 10:37 SP [id number]) Out-Patient Physical Therapy Visit Information Visit Information Visit Type Treatment Note Visit Start Time 09:51 Visit Stop Time 10:32 Total Visit Minutes 41 Visit Number 13 Number of INTERNAL CONTROL SPECIALIST Visits 1 Evaluation Information Evaluation Date 08/11/22 PT-OP-B Current Condition Start: 08/11/22 17:30 Freq: Status: Active Protocol: Document 08/11/22 10:30 DCW (Rec: 08/11/22 17:53 DCW [id number]) Current Condition History of Current Condition Onset Date ~1 year history Current Complaints Posterior right hip pain History of Current Condition Pt is a 67 year old male presenting to skilled therapy with complaints of a one year history of posterior right hip pain. Pt reports that he has a long-standing, multi-year history of this same type of pain, but it has just been off and on throughout his life. Starting about a year ago, however, he noticed it was no longer going away, which he mainly noticed following a lot of traveling. Pt report pain is worst with extended sitting , especially in a car or airplane. Additionally has increased pain walking up hill . Reports it does feel better with stretching, but has not had any improvement with massage therapy or director day care center. Pt reports pain can occasionally go from his posterior hip down his lateral thigh, typically stopping at his knee, but will occasionally get into his foot. Prior Treatments and Tests Lumbar MRI: IMPRESSION: Multiple levels relatively prominent lumbar spine degenerative change can be seen, which are overall worst at the L3-L4 level. Mild levoconvex scoliotic curvature is noted. per Meño Davis M.D. on 07/21/2022 Treatment Goals Patient/Caregiver Goals Decrease back, hip, and leg pain PT-OP-C Subjective Start: 08/11/22 17:30 Freq: Status: Active Protocol: Document 10/12/22 09:51 SP (Rec: 10/12/22 10:37 SP [id number]) OP-PT Subjective Patient Comments Patient Comments Pt reports already did some stretching before coming. Unsure will be joining the gym so HEp for home and knowledge if/how perform at gym. PT-OP-F Manual Assessment Start: 08/11/22 17:30 Freq: Status: Active Protocol: Document 10/01/22 16:45 DCW (Rec: 10/01/22 17:05 DCW [id number]) Manual Assessments Soft Tissue Assessment Soft Tissue Mobility Assessment Mild-moderate hypertonia R>L piriformis, R QL, R paraspinals. PT-OP-K Range of Motion Start: 08/11/22 17:30 Freq: Status: Active Protocol: Document 10/01/22 16:45 DCW (Rec: 10/01/22 17:05 DCW [id number]) Lumbar Spine Range of Motion Lumbar Spine Active Degrees Testing Position Standing Flexion 75 Extension 45 PT-OP-L Special Tests Start: 08/11/22 17:30 Freq: Status: Active Protocol: Document 10/01/22 16:45 DCW (Rec: 10/01/22 17:05 DCW [id number]) Special Tests Lumbar Spine Special Tests JAMEL Test Results Right hip tightness Vertical Spine Loading Test Results Negative Straight Leg Raise Test Results B HS tightness Standing Flexion Test Results Negative Slump Test Results Negative Manual Traction Test Results Mild relief Compression Test Results Negative A-P Shearing Test Results Negative PT-OP-M Strength Start: 08/11/22 17:30 Freq: Status: Active Protocol: Document 10/01/22 16:45 DCW (Rec: 10/01/22 17:05 DCW [id number]) Hip Strength Hip Manual Muscle Testing Right Flexion (L2) 4+ Good+ Abduction 4 Good Adduction 4+ Good+ External Rotation 5 Normal Internal Rotation 5 Normal Left Flexion (L2) 5 Normal Abduction 5 Normal Adduction 5 Normal External Rotation 5 Normal Internal Rotation 5 Normal Knee Strength Knee Manual Muscle Testing Right Flexion (S2) 5 Normal Extension (L3) 5 Normal Left Flexion (S2) 5 Normal Extension (L3) 5 Normal PT-OP-Q Treatments Start: 08/11/22 17:30 Freq: Status: Active Protocol: Document 10/12/22 09:51 SP (Rec: 10/12/22 10:37 SP [id number]) Therapeutic Exercises Supine Exercises Bridge Supine Exercise Name DL->SL Bridge Reps/Minutes x10 DL, x10 SL Comments cued TA inward, breath; level pelvis during SL Prone Exercises quadruped Prone Exercise Name 1. cat/cow 2. alt UE/LE ext Side bilateral Reps/Minutes x10 ea Comments cues R hip level with lift, TA slow pacing control Sidelying Exercises Hip Abduction Sidelying Exercise Name TA Hip Abduction- added to HEP Side bilateral Resistance AROM Reps/Minutes x10 Comments cued TA stacked hips, alignment, lift hip abd/glut fac Sitting Exercises STS Sitting Exercise Name TA Resistance AROM and 5# DB Equipment Used 16 box Reps/Minutes 2x5 Comments cued neutral pelvis, little discomfort LB so stopped for now. LS: QL, ES stretch Sitting Exercise Name added to HEP: fwd, off to side Side bilateral Reps/Minutes 30 x2 Comments cue straight back hip hindge forward then off side- gd fdbk back/ hip stret Piriformis Stretch Sitting Exercise Name Seated figure-4 (ER), piriformis stretch (ER) Side bilateral Standing Exercises self STMs Standing Exercise Name reviewed self: ES, glut Equipment Used ball wall Reps/Minutes 2 min total Comments good feedback response paloff press Standing Exercise Name added to HEP Resistance TB #2 Reps/Minutes 2x10 Comments cued TA neutral pelvis, press out front navel painfree resisted shld ext Standing Exercise Name added to HEP Resistance Tb #2 Reps/Minutes 2x10 Comments cued scap retract/depress/ chest lift core fac con/ecc PT-OP-R Modalities Start: 08/11/22 17:30 Freq: Status: Active Protocol: Document 09/29/22 09:09 NB (Rec: 09/29/22 09:48 [facility] [id number]) Hot Pack/Cold Pack Treatment Hot Pack Location Lumbar R>L and R glutes Patient Position Prone Treatment Duration (minutes) 15 Patient Tolerance Good Comments w/ pillow support under chest. PT-OP-T Assessment and Plan Start: 08/11/22 17:30 Freq: Status: Active Protocol: Document 10/12/22 09:51 SP (Rec: 10/12/22 10:37 SP [id number]) Physical Therapy Assessment Goals Two Impairment Pt experiences radicular symptoms with extended sitting Snf Goal (LTG) Pt to demonstrate ability to sit in his car for >90 minutes to improve his ability to travel without pain. 09/04/22: Pt reports he can sit a bit longer but still not >90 min. 09/15/22: Pt instructed in sitting posture for car w/ cues for PPT and chin tuck - pt able to demonstrate improved seated posture. Also discussed option to use tennis ball for self-STM to piriformis in sitting. 09/25/22: Pt notices when sitting in care PPT feels better. He has not tried tennis ball in car yet and reports increased stiffness after sitting in car. LTG Duration 11/26/22 - Improving Assessment Summary Assessment Pt improved TA and hip abd facilitation with all ther ex today, decreased to no LB recruitment. Cues for alignment and form throughout. Improved stretch feeback at end QL and hip IR/ ERs. Physical Therapy Plan Frequency and Duration Frequency of Treatment 2x/Week Plan of Care Start Date 10/01/22 Plan of Care End Date 11/26/22 Therapeutic Interventions Therapeutic Interventions Aquatic Therapy,Home Exercise Program,Joint Mobilizations, Manual Therapy,Neuromuscular Re-education,Patient/Caregiver Education,Self-Care/Home Management,Soft Tissue Mobilization,Therapeutic Activities,Therapeutic Exercises Modalities Cold Pack/Ice Massage,Electric Stimulation,Hot Packs, Ultrasound Next Visit Focus/Plan Next Note Type Treatment Note Next Visit Plan Next tx check self STMS ball wall glut, recheck shld ext, palloff press, side hip abd, quadruped UE/ LE ext. Consider multifidi stepouts w/ paloff press and resisted bandwalking . Review open book w/ pillow supports. Manual as needed, finish w/ hot pack. POC: Stretching, STM, hip and core strengthening
--- NOTE | 2022-10-14 09:00 | PT.OTN ---
Current Diagnoses Pain in right hip (10/14/22) Intervertebral disc disorders with radiculopathy, lumbar region (10/14/22) Low back pain, unspecified (10/14/22) Physical Therapy Treatment Note PT-OP-A Visit Information Start: 08/11/22 17:30 Freq: Status: Active Protocol: Document 10/14/22 08:25 SP (Rec: 10/14/22 09:06 SP [id number]) Out-Patient Physical Therapy Visit Information Visit Information Visit Type Treatment Note Visit Start Time 08:22 Visit Stop Time 09:00 Total Visit Minutes 38 Visit Number 14 Number of IRONER OR PRESSER Visits 2 Evaluation Information Evaluation Date 08/11/22 PT-OP-B Current Condition Start: 08/11/22 17:30 Freq: Status: Active Protocol: Document 08/11/22 10:30 DCW (Rec: 08/11/22 17:53 DCW [id number]) Current Condition History of Current Condition Onset Date ~1 year history Current Complaints Posterior right hip pain History of Current Condition Pt is a 67 year old male presenting to skilled therapy with complaints of a one year history of posterior right hip pain. Pt reports that he has a long-standing, multi-year history of this same type of pain, but it has just been off and on throughout his life. Starting about a year ago, however, he noticed it was no longer going away, which he mainly noticed following a lot of traveling. Pt report pain is worst with extended sitting , especially in a car or airplane. Additionally has increased pain walking up hill . Reports it does feel better with stretching, but has not had any improvement with massage therapy or childcare director. Pt reports pain can occasionally go from his posterior hip down his lateral thigh, typically stopping at his knee, but will occasionally get into his foot. Prior Treatments and Tests Lumbar MRI: IMPRESSION: Multiple levels relatively prominent lumbar spine degenerative change can be seen, which are overall worst at the L3-L4 level. Mild levoconvex scoliotic curvature is noted. per Meño Davis M.D. on 07/21/2022 Treatment Goals Patient/Caregiver Goals Decrease back, hip, and leg pain PT-OP-C Subjective Start: 08/11/22 17:30 Freq: Status: Active Protocol: Document 10/14/22 08:25 SP (Rec: 10/14/22 09:06 SP [id number]) OP-PT Subjective Patient Comments Patient Comments Pt stated did HEP, SL bridge is a good challenge. PT-OP-F Manual Assessment Start: 08/11/22 17:30 Freq: Status: Active Protocol: Document 10/01/22 16:45 DCW (Rec: 10/01/22 17:05 DCW [id number]) Manual Assessments Soft Tissue Assessment Soft Tissue Mobility Assessment Mild-moderate hypertonia R>L piriformis, R QL, R paraspinals. PT-OP-K Range of Motion Start: 08/11/22 17:30 Freq: Status: Active Protocol: Document 10/01/22 16:45 DCW (Rec: 10/01/22 17:05 DCW [id number]) Lumbar Spine Range of Motion Lumbar Spine Active Degrees Testing Position Standing Flexion 75 Extension 45 PT-OP-L Special Tests Start: 08/11/22 17:30 Freq: Status: Active Protocol: Document 10/01/22 16:45 DCW (Rec: 10/01/22 17:05 DCW [id number]) Special Tests Lumbar Spine Special Tests JAMEL Test Results Right hip tightness Vertical Spine Loading Test Results Negative Straight Leg Raise Test Results B HS tightness Standing Flexion Test Results Negative Slump Test Results Negative Manual Traction Test Results Mild relief Compression Test Results Negative A-P Shearing Test Results Negative PT-OP-M Strength Start: 08/11/22 17:30 Freq: Status: Active Protocol: Document 10/01/22 16:45 DCW (Rec: 10/01/22 17:05 DCW [id number]) Hip Strength Hip Manual Muscle Testing Right Flexion (L2) 4+ Good+ Abduction 4 Good Adduction 4+ Good+ External Rotation 5 Normal Internal Rotation 5 Normal Left Flexion (L2) 5 Normal Abduction 5 Normal Adduction 5 Normal External Rotation 5 Normal Internal Rotation 5 Normal Knee Strength Knee Manual Muscle Testing Right Flexion (S2) 5 Normal Extension (L3) 5 Normal Left Flexion (S2) 5 Normal Extension (L3) 5 Normal PT-OP-Q Treatments Start: 08/11/22 17:30 Freq: Status: Active Protocol: Document 10/14/22 08:25 SP (Rec: 10/14/22 09:06 SP [id number]) Therapeutic Exercises Supine Exercises Bridge Supine Exercise Name 1. over 55cm ball 2. DL table 3. SL- to challenging Hold Side bilateral Reps/Minutes 2x5 reps each Comments cued TA, PPT neutral, heel press glut lift, NO LB arch LTR Supine Exercise Name 1. TB #1 2x10 reps alternat side 2. AROM Side bilateral Resistance LEs over 55cm tball Reps/Minutes 10 x 5SH Comments vc gentle, PPT/no arching back - good feedback response Sidelying Exercises side plank Sidelying Exercise Name attempted in PT Comments challenged with neutral pelvis , trunk alignment, scap stab- HOLD Standing Exercises paloff press Standing Exercise Name reviewed HEP Resistance TB #3 Equipment Used cued // feet/ pelvis straight, no deep LB Reps/Minutes 2x10 Comments cued TA neutral pelvis, press out front navel painfree Self-Care/Home Management Treatment Education Patient Education Body Mechanics,Home Exercise Program,Pain Management, Posture Other Education Extra time spent anatomy of core, back, alignment and proper form reported better core engagement for HEP. PT-OP-R Modalities Start: 08/11/22 17:30 Freq: Status: Active Protocol: Document 09/29/22 09:09 NBM (Rec: 09/29/22 09:48 NBM [id number]) Hot Pack/Cold Pack Treatment Hot Pack Location Lumbar R>L and R glutes Patient Position Prone Treatment Duration (minutes) 15 Patient Tolerance Good Comments w/ pillow support under chest. PT-OP-T Assessment and Plan Start: 08/11/22 17:30 Freq: Status: Active Protocol: Document 10/14/22 08:25 SP (Rec: 10/14/22 09:06 SP [id number]) Physical Therapy Assessment Goals Two Impairment Pt experiences radicular symptoms with extended sitting Chain Maker Loom Control Goal (LTG) Pt to demonstrate ability to sit in his car for >90 minutes to improve his ability to travel without pain. 09/04/22: Pt reports he can sit a bit longer but still not >90 min. 09/15/22: Pt instructed in sitting posture for car w/ cues for PPT and chin tuck - pt able to demonstrate improved seated posture. Also discussed option to use tennis ball for self-STM to piriformis in sitting. 09/25/22: Pt notices when sitting in care PPT feels better. He has not tried tennis ball in car yet and reports increased stiffness after sitting in car. LTG Duration 3/2/23 - Improving One Impairment Pt does not have an appropriate home exercise program Short Term Goal (STG) Pt to be independent and compliant with an appropriate HEP STG Duration Met Assessment Summary Assessment Pt improved self corrections PPT/ TA for core strengthening stability and no LB recruitment throughout tx. MIrror use of feet/pelvis/ trunk/ shld alignment/soft knee improved core focus during paloff press. Good effort core reported. Physical Therapy Plan Frequency and Duration Frequency of Treatment 2x/Week Plan of Care Start Date 10/01/22 Plan of Care End Date 11/26/22 Therapeutic Interventions Therapeutic Interventions Aquatic Therapy,Home Exercise Program,Joint Mobilizations, Manual Therapy,Neuromuscular Re-education,Patient/Caregiver Education,Self-Care/Home Management,Soft Tissue Mobilization,Therapeutic Activities,Therapeutic Exercises Modalities Cold Pack/Ice Massage,Electric Stimulation,Hot Packs, Ultrasound Next Visit Focus/Plan Next Note Type Treatment Note Next Visit Plan Next tx recheck shld ext, palloff press, side hip abd, quadruped UE/ LE ext. DL SL bridge. Consider multifidi stepouts w/ paloff press and resisted bandwalking. Review open book w/ pillow supports. Manual as needed, finish w/ hot pack. POC: Stretching, STM, hip and core strengthening
--- NOTE | 2022-10-19 09:43 | PT.OTN ---
Current Diagnoses Pain in right hip (10/19/22) Intervertebral disc disorders with radiculopathy, lumbar region (10/19/22) Low back pain, unspecified (10/19/22) Physical Therapy Treatment Note PT-OP-A Visit Information Start: 08/11/22 17:30 Freq: Status: Active Protocol: Document 10/19/22 09:05 NBM (Rec: 10/19/22 09:43 NBM [id number]) Out-Patient Physical Therapy Visit Information Visit Information Visit Type Treatment Note Visit Start Time 09:05 Visit Stop Time 09:45 Total Visit Minutes 40 Visit Number 15 Number of SPEECH AND LANGUAGE CLINICIAN Visits 3 Evaluation Information Evaluation Date 08/11/22 PT-OP-B Current Condition Start: 08/11/22 17:30 Freq: Status: Active Protocol: Document 08/11/22 10:30 DCW (Rec: 08/11/22 17:53 DCW [id number]) Current Condition History of Current Condition Onset Date ~1 year history Current Complaints Posterior right hip pain History of Current Condition Pt is a 67 year old male presenting to skilled therapy with complaints of a one year history of posterior right hip pain. Pt reports that he has a long-standing, multi-year history of this same type of pain, but it has just been off and on throughout his life. Starting about a year ago, however, he noticed it was no longer going away, which he mainly noticed following a lot of traveling. Pt report pain is worst with extended sitting , especially in a car or airplane. Additionally has increased pain walking up hill . Reports it does feel better with stretching, but has not had any improvement with massage therapy or health care facilities inspector. Pt reports pain can occasionally go from his posterior hip down his lateral thigh, typically stopping at his knee, but will occasionally get into his foot. Prior Treatments and Tests Lumbar MRI: IMPRESSION: Multiple levels relatively prominent lumbar spine degenerative change can be seen, which are overall worst at the L3-L4 level. Mild levoconvex scoliotic curvature is noted. per Meño Davis M.D. on 07/21/2022 Treatment Goals Patient/Caregiver Goals Decrease back, hip, and leg pain PT-OP-C Subjective Start: 08/11/22 17:30 Freq: Status: Active Protocol: Document 10/19/22 09:05 NBM (Rec: 10/19/22 09:43 NB [id number]) OP-PT Subjective Patient Comments Patient Comments Pt reports single leg bridges from last visit strained lower back and it took a couple of days to get better. Tennis ball STM and rest helped. Pt states he is improving overall . PT-OP-F Manual Assessment Start: 08/11/22 17:30 Freq: Status: Active Protocol: Document 10/01/22 16:45 DCW (Rec: 10/01/22 17:05 DCW [id number]) Manual Assessments Soft Tissue Assessment Soft Tissue Mobility Assessment Mild-moderate hypertonia R>L piriformis, R QL, R paraspinals. PT-OP-K Range of Motion Start: 08/11/22 17:30 Freq: Status: Active Protocol: Document 10/01/22 16:45 DCW (Rec: 10/01/22 17:05 DCW [id number]) Lumbar Spine Range of Motion Lumbar Spine Active Degrees Testing Position Standing Flexion 75 Extension 45 PT-OP-L Special Tests Start: 08/11/22 17:30 Freq: Status: Active Protocol: Document 10/01/22 16:45 DCW (Rec: 10/01/22 17:05 DCW [id number]) Special Tests Lumbar Spine Special Tests JAMEL Test Results Right hip tightness Vertical Spine Loading Test Results Negative Straight Leg Raise Test Results B HS tightness Standing Flexion Test Results Negative Slump Test Results Negative Manual Traction Test Results Mild relief Compression Test Results Negative A-P Shearing Test Results Negative PT-OP-M Strength Start: 08/11/22 17:30 Freq: Status: Active Protocol: Document 10/01/22 16:45 DCW (Rec: 10/01/22 17:05 DCW [id number]) Hip Strength Hip Manual Muscle Testing Right Flexion (L2) 4+ Good+ Abduction 4 Good Adduction 4+ Good+ External Rotation 5 Normal Internal Rotation 5 Normal Left Flexion (L2) 5 Normal Abduction 5 Normal Adduction 5 Normal External Rotation 5 Normal Internal Rotation 5 Normal Knee Strength Knee Manual Muscle Testing Right Flexion (S2) 5 Normal Extension (L3) 5 Normal Left Flexion (S2) 5 Normal Extension (L3) 5 Normal PT-OP-Q Treatments Start: 08/11/22 17:30 Freq: Status: Active Protocol: Document 10/19/22 09:05 NBM (Rec: 10/19/22 09:43 NBM [id number]) Therapeutic Exercises Prone Exercises quadruped Prone Exercise Name 1. cat/cow-not today 2. alt UE /LE ext Side bilateral Reps/Minutes x10 ea Comments cues R hip level with lift, TA slow pacing control lumbar extension Prone Exercise Name press up Reps/Minutes 3' Comments low back pain relief reported Sitting Exercises Clamshell Sitting Exercise Name Seated clamshell/abduction Side bilateral Resistance LVl1>Lvl2 Tb Equipment Used standard mesh chair Reps/Minutes x10 Comments cue for core LS: QL, ES stretch Sitting Exercise Name added to HEP: fwd, off to side Side bilateral Reps/Minutes 30 x2 Comments cue straight back hip hindge forward then off side- gd fdbk back/ hip stret Piriformis Stretch Sitting Exercise Name Seated figure-4 (ER), piriformis stretch (ER) Side bilateral Standing Exercises paloff press Standing Exercise Name reviewed HEP Resistance TB #3 Equipment Used cued // feet/ pelvis straight, no deep LB Reps/Minutes 2x10 Comments cued TA neutral pelvis, press out front navel painfree resisted shld ext Standing Exercise Name cue no breathholding Side bilateral Resistance Tb #2 Reps/Minutes 2x10 Comments cued scap retract/depress/ chest lift core fac con/ecc Self-Care/Home Management Treatment Education Patient Education Home Exercise Program,Pain Management,Posture Other Education Discussed ice for pain management of LBP flareup. added seated clamshell Lvl2 Tb and Thread the Needle to HEP, TB and HO given. PT-OP-R Modalities Start: 08/11/22 17:30 Freq: Status: Active Protocol: Document 10/19/22 09:05 [facility] (Rec: 10/19/22 09:43 [facility] [id number]) Hot Pack/Cold Pack Treatment Hot Pack Location Lumbar R>L and R glutes Patient Position Prone Treatment Duration (minutes) 15 Patient Tolerance Good Comments w/ pillow support under chest. PT-OP-T Assessment and Plan Start: 08/11/22 17:30 Freq: Status: Active Protocol: Document 10/19/22 09:05 [facility] (Rec: 10/19/22 09:43 [facility] [id number]) Physical Therapy Assessment Impairments Impairments Functional Activities, Functional Mobility,Pain,ROM, Sensation,Soft Tissue Mobility ,Strength,Tone Goals Two Impairment Pt experiences radicular symptoms with extended sitting Customer Care Voice Consultant Goal (LTG) Pt to demonstrate ability to sit in his car for >90 minutes to improve his ability to travel without pain. 09/04/22: Pt reports he can sit a bit longer but still not >90 min. 09/15/22: Pt instructed in sitting posture for car w/ cues for PPT and chin tuck - pt able to demonstrate improved seated posture. Also discussed option to use tennis ball for self-STM to piriformis in sitting. 09/25/22: Pt notices when sitting in care PPT feels better. He has not tried tennis ball in car yet and reports increased stiffness after sitting in car. LTG Duration 11/26/22 - Improving One Impairment Pt does not have an appropriate home exercise program Short Term Goal (STG) Pt to be independent and compliant with an appropriate HEP STG Duration Met Assessment Summary Assessment Pt tolerated treatment session with some tolerable increase in R low back discomfort (R QL ). During session pt reports RLE weakness upon sitting which improves after walking - symptoms resolved with cues for PPT. Pt requires cues for scap setting with Paloff press and resisted shoulder extension but demonstrates improved self-awareness by end of session. Pt reports opportunities for sitting throughout the day - added seated clamshell Lvl2 Tb and Thread the Needle to HEP, TB and HO given. Physical Therapy Plan Frequency and Duration Frequency of Treatment 2x/Week Plan of Care Start Date 10/01/22 Plan of Care End Date 11/26/22 Therapeutic Interventions Therapeutic Interventions Aquatic Therapy,Home Exercise Program,Joint Mobilizations, Manual Therapy,Neuromuscular Re-education,Patient/Caregiver Education,Self-Care/Home Management,Soft Tissue Mobilization,Therapeutic Activities,Therapeutic Exercises Modalities Cold Pack/Ice Massage,Electric Stimulation,Hot Packs, Ultrasound Next Visit Focus/Plan Next Note Type Treatment Note Next Visit Plan Next tx recheck shld ext, palloff press, side hip abd, quadruped UE/ LE ext. DL SL bridge. Consider multifidi stepouts w/ paloff press and resisted bandwalking. Review open book w/ pillow supports. Manual as needed, finish w/ hot pack. POC: Stretching, STM, hip and core strengthening
--- NOTE | 2022-11-06 16:03 | PT.OTN ---
Current Diagnoses Pain in right hip (11/06/22) Intervertebral disc disorders with radiculopathy, lumbar region (11/06/22) Low back pain, unspecified (11/06/22) Physical Therapy Treatment Note PT-OP-A Visit Information Start: 08/11/22 17:30 Freq: Status: Active Protocol: Document 11/06/22 15:15 DCW (Rec: 11/06/22 16:02 DCW [id number]) Out-Patient Physical Therapy Visit Information Visit Information Visit Type Treatment Note Visit Start Time 15:15 Visit Stop Time 16:00 Total Visit Minutes 45 Visit Number 16 Number of AUTOMOTIVE MAINTENANCE TECHNICIAN Visits 0 Evaluation Information Evaluation Date 08/11/22 PT-OP-B Current Condition Start: 08/11/22 17:30 Freq: Status: Active Protocol: Document 08/11/22 10:30 DCW (Rec: 08/11/22 17:53 DCW [id number]) Current Condition History of Current Condition Onset Date ~1 year history Current Complaints Posterior right hip pain History of Current Condition Pt is a 67 year old male presenting to skilled therapy with complaints of a one year history of posterior right hip pain. Pt reports that he has a long-standing, multi-year history of this same type of pain, but it has just been off and on throughout his life. Starting about a year ago, however, he noticed it was no longer going away, which he mainly noticed following a lot of traveling. Pt report pain is worst with extended sitting , especially in a car or airplane. Additionally has increased pain walking up hill . Reports it does feel better with stretching, but has not had any improvement with massage therapy or director of career resources. Pt reports pain can occasionally go from his posterior hip down his lateral thigh, typically stopping at his knee, but will occasionally get into his foot. Prior Treatments and Tests Lumbar MRI: IMPRESSION: Multiple levels relatively prominent lumbar spine degenerative change can be seen, which are overall worst at the L3-L4 level. Mild levoconvex scoliotic curvature is noted. per Meño Davis M.D. on 07/21/2022 Treatment Goals Patient/Caregiver Goals Decrease back, hip, and leg pain PT-OP-C Subjective Start: 08/11/22 17:30 Freq: Status: Active Protocol: Document 11/06/22 15:15 DCW (Rec: 11/06/22 16:02 DCW [id number]) OP-PT Subjective Patient Comments Patient Comments Still getting some pretty good pain in my [right] hip. PT-OP-F Manual Assessment Start: 08/11/22 17:30 Freq: Status: Active Protocol: Document 10/01/22 16:45 DCW (Rec: 10/01/22 17:05 DCW [id number]) Manual Assessments Soft Tissue Assessment Soft Tissue Mobility Assessment Mild-moderate hypertonia R>L piriformis, R QL, R paraspinals. PT-OP-K Range of Motion Start: 08/11/22 17:30 Freq: Status: Active Protocol: Document 10/01/22 16:45 DCW (Rec: 10/01/22 17:05 DCW [id number]) Lumbar Spine Range of Motion Lumbar Spine Active Degrees Testing Position Standing Flexion 75 Extension 45 PT-OP-L Special Tests Start: 08/11/22 17:30 Freq: Status: Active Protocol: Document 10/01/22 16:45 DCW (Rec: 10/01/22 17:05 DCW [id number]) Special Tests Lumbar Spine Special Tests JAMEL Test Results Right hip tightness Vertical Spine Loading Test Results Negative Straight Leg Raise Test Results B HS tightness Standing Flexion Test Results Negative Slump Test Results Negative Manual Traction Test Results Mild relief Compression Test Results Negative A-P Shearing Test Results Negative PT-OP-M Strength Start: 08/11/22 17:30 Freq: Status: Active Protocol: Document 10/01/22 16:45 DCW (Rec: 10/01/22 17:05 DCW [id number]) Hip Strength Hip Manual Muscle Testing Right Flexion (L2) 4+ Good+ Abduction 4 Good Adduction 4+ Good+ External Rotation 5 Normal Internal Rotation 5 Normal Left Flexion (L2) 5 Normal Abduction 5 Normal Adduction 5 Normal External Rotation 5 Normal Internal Rotation 5 Normal Knee Strength Knee Manual Muscle Testing Right Flexion (S2) 5 Normal Extension (L3) 5 Normal Left Flexion (S2) 5 Normal Extension (L3) 5 Normal PT-OP-Q Treatments Start: 08/11/22 17:30 Freq: Status: Active Protocol: Document 11/06/22 15:15 DCW (Rec: 11/06/22 16:02 DCW [id number]) Therapeutic Exercises Supine Exercises IT Band stretch Side bilateral Equipment Used c/ strap Reps/Minutes x60s ea Comments R tighter than L - good feedback response Piriformis Stretch Supine Exercise Name Figure-4 - HEP Side bilateral Standing Exercises paloff press Standing Exercise Name reviewed HEP Resistance TB #3 Equipment Used cued // feet/ pelvis straight, no deep LB Reps/Minutes 2x10 Comments cued TA neutral pelvis, press out front navel painfree resisted shld ext Standing Exercise Name cue no breathholding Side bilateral Resistance Tb #2 Reps/Minutes 2x10 Comments cued scap retract/depress/ chest lift core fac con/ecc Kitchen Sink Stretch Standing Exercise Name added to HEP Side bilateral Equipment Used counter Reps/Minutes x30 sec Manual Therapy Treatment Soft Tissue Mobilization Piriformis Body Location R Piriformis Mobilization Type Sustained Pressure,Trigger Point Release,Other Intensity/Depth Moderate Body Position Sidelying Manual Traction Lumbar Details Short [place] LE traction /c strap Body Position Hooklying PT-OP-R Modalities Start: 08/11/22 17:30 Freq: Status: Active Protocol: Document 10/19/22 09:05 NBM (Rec: 10/19/22 09:43 NBM [id number]) Hot Pack/Cold Pack Treatment Hot Pack Location Lumbar R>L and R glutes Patient Position Prone Treatment Duration (minutes) 15 Patient Tolerance Good Comments w/ pillow support under chest. PT-OP-T Assessment and Plan Start: 08/11/22 17:30 Freq: Status: Active Protocol: Document 11/06/22 15:15 DCW (Rec: 11/06/22 16:02 DCW [id number]) Physical Therapy Assessment Impairments Impairments Functional Activities, Functional Mobility,Pain,ROM, Sensation,Soft Tissue Mobility ,Strength,Tone Goals Two Impairment Pt experiences radicular symptoms with extended sitting Long-Term Goal (LTG) Pt to demonstrate ability to sit in his car for >90 minutes to improve his ability to travel without pain. 09/04/22: Pt reports he can sit a bit longer but still not >90 min. 09/15/22: Pt instructed in sitting posture for car w/ cues for PPT and chin tuck - pt able to demonstrate improved seated posture. Also discussed option to use tennis ball for self-STM to piriformis in sitting. 09/25/22: Pt notices when sitting in care PPT feels better. He has not tried tennis ball in car yet and reports increased stiffness after sitting in car. LTG Duration 11/26/22 - Improving One Impairment Pt does not have an appropriate home exercise program Short Term Goal (STG) Pt to be independent and compliant with an appropriate HEP STG Duration Met Assessment Summary Assessment Reviewed a lot of HEP today in effort to prepare for discharge to independent HEP, pt demonstrates fairly good understanding overall, a few bits of fine-tuning. Pt feeling fairly confident with discharge next visit. Physical Therapy Plan Frequency and Duration Frequency of Treatment 2x/Week Plan of Care Start Date 10/01/22 Plan of Care End Date 11/26/22 Therapeutic Interventions Therapeutic Interventions Aquatic Therapy,Home Exercise Program,Joint Mobilizations, Manual Therapy,Neuromuscular Re-education,Patient/Caregiver Education,Self-Care/Home Management,Soft Tissue Mobilization,Therapeutic Activities,Therapeutic Exercises Modalities Cold Pack/Ice Massage,Electric Stimulation,Hot Packs, Ultrasound Next Visit Focus/Plan Next Note Type Treatment Note Next Visit Plan Next tx recheck shld ext, palloff press, side hip abd, quadruped UE/ LE ext. DL SL bridge. Consider multifidi stepouts w/ paloff press and resisted bandwalking. Review open book w/ pillow supports. Manual as needed, finish w/ hot pack. POC: Stretching, STM, hip and core strengthening
--- NOTE | 2022-11-09 10:17 | PT.OTN ---
Current Diagnoses Pain in right hip (11/09/22) Intervertebral disc disorders with radiculopathy, lumbar region (11/09/22) Low back pain, unspecified (11/09/22) Physical Therapy Treatment Note PT-OP-A Visit Information Start: 08/11/22 17:30 Freq: Status: Active Protocol: Document 11/09/22 09:45 DCW (Rec: 11/09/22 10:17 DCW [id number]) Out-Patient Physical Therapy Visit Information Visit Information Visit Type Discharge Summary Visit Start Time 09:45 Visit Stop Time 10:15 Total Visit Minutes 30 Visit Number 17 Number of ANNEALING OPERATOR Visits 0 Evaluation Information Evaluation Date 08/11/22 PT-OP-B Current Condition Start: 08/11/22 17:30 Freq: Status: Active Protocol: Document 08/11/22 10:30 DCW (Rec: 08/11/22 17:53 DCW [id number]) Current Condition History of Current Condition Onset Date ~1 year history Current Complaints Posterior right hip pain History of Current Condition Pt is a 67 year old male presenting to skilled therapy with complaints of a one year history of posterior right hip pain. Pt reports that he has a long-standing, multi-year history of this same type of pain, but it has just been off and on throughout his life. Starting about a year ago, however, he noticed it was no longer going away, which he mainly noticed following a lot of traveling. Pt report pain is worst with extended sitting , especially in a car or airplane. Additionally has increased pain walking up hill . Reports it does feel better with stretching, but has not had any improvement with massage therapy or acute care clinical nurse specialist. Pt reports pain can occasionally go from his posterior hip down his lateral thigh, typically stopping at his knee, but will occasionally get into his foot. Prior Treatments and Tests Lumbar MRI: IMPRESSION: Multiple levels relatively prominent lumbar spine degenerative change can be seen, which are overall worst at the L3-L4 level. Mild levoconvex scoliotic curvature is noted. per Meño Davis M.D. on 07/21/2022 Treatment Goals Patient/Caregiver Goals Decrease back, hip, and leg pain PT-OP-C Subjective Start: 08/11/22 17:30 Freq: Status: Active Protocol: Document 11/09/22 09:45 DCW (Rec: 11/09/22 10:17 DCW [id number]) OP-PT Subjective Patient Comments Patient Comments It wasn't until I started here I realized how important the positioning of this [right ] leg is with my tight piriformis. PT-OP-F Manual Assessment Start: 08/11/22 17:30 Freq: Status: Active Protocol: Document 10/01/22 16:45 DCW (Rec: 10/01/22 17:05 DCW [id number]) Manual Assessments Soft Tissue Assessment Soft Tissue Mobility Assessment Mild-moderate hypertonia R>L piriformis, R QL, R paraspinals. PT-OP-K Range of Motion Start: 08/11/22 17:30 Freq: Status: Active Protocol: Document 10/01/22 16:45 DCW (Rec: 10/01/22 17:05 DCW [id number]) Lumbar Spine Range of Motion Lumbar Spine Active Degrees Testing Position Standing Flexion 75 Extension 45 PT-OP-L Special Tests Start: 08/11/22 17:30 Freq: Status: Active Protocol: Document 10/01/22 16:45 DCW (Rec: 10/01/22 17:05 DCW [id number]) Special Tests Lumbar Spine Special Tests JAMEL Test Results Right hip tightness Vertical Spine Loading Test Results Negative Straight Leg Raise Test Results B HS tightness Standing Flexion Test Results Negative Slump Test Results Negative Manual Traction Test Results Mild relief Compression Test Results Negative A-P Shearing Test Results Negative PT-OP-M Strength Start: 08/11/22 17:30 Freq: Status: Active Protocol: Document 11/09/22 09:45 DCW (Rec: 11/09/22 10:17 DCW [id number]) Hip Strength Hip Manual Muscle Testing Right Flexion (L2) 5 Normal Abduction 4+ Good+ Adduction 5 Normal External Rotation 5 Normal Internal Rotation 5 Normal Left Flexion (L2) 5 Normal Abduction 5 Normal Adduction 5 Normal External Rotation 5 Normal Internal Rotation 5 Normal PT-OP-Q Treatments Start: 08/11/22 17:30 Freq: Status: Active Protocol: Document 11/09/22 09:45 DCW (Rec: 11/09/22 10:17 DCW [id number]) Therapeutic Exercises Supine Exercises IT Band stretch Side bilateral Equipment Used c/ strap Reps/Minutes x60s ea Comments R tighter than L - good feedback response Piriformis Stretch Supine Exercise Name Figure-4 - HEP Side bilateral Manual Therapy Treatment Soft Tissue Mobilization Piriformis Body Location R Piriformis Mobilization Type Sustained Pressure,Trigger Point Release,Other Intensity/Depth Moderate Body Position Sidelying Manual Traction Lumbar Details Short [place] LE traction /c strap Body Position Hooklying Comments Lateral PT-OP-R Modalities Start: 08/11/22 17:30 Freq: Status: Active Protocol: Document 10/19/22 09:05 NBM (Rec: 10/19/22 09:43 NBM [id number]) Hot Pack/Cold Pack Treatment Hot Pack Location Lumbar R>L and R glutes Patient Position Prone Treatment Duration (minutes) 15 Patient Tolerance Good Comments w/ pillow support under chest. PT-OP-T Assessment and Plan Start: 08/11/22 17:30 Freq: Status: Active Protocol: Document 11/09/22 09:45 DCW (Rec: 11/09/22 10:17 DCW [id number]) Physical Therapy Assessment Impairments Impairments Functional Activities, Functional Mobility,Pain,ROM, Sensation,Soft Tissue Mobility ,Strength,Tone Goals Two Impairment Pt experiences radicular symptoms with extended sitting Penitentiary Goal (LTG) Pt to demonstrate ability to sit in his car for >90 minutes to improve his ability to travel without pain. 09/04/22: Pt reports he can sit a bit longer but still not >90 min. 09/15/22: Pt instructed in sitting posture for car w/ cues for PPT and chin tuck - pt able to demonstrate improved seated posture. Also discussed option to use tennis ball for self-STM to piriformis in sitting. 09/25/22: Pt notices when sitting in care PPT feels better. He has not tried tennis ball in car yet and reports increased stiffness after sitting in car. LTG Duration 11/26/22 - Improving One Impairment Pt does not have an appropriate home exercise program Short Term Goal (STG) Pt to be independent and compliant with an appropriate HEP STG Duration Met Progress Towards Goals Progress Towards Goals Progressing Toward Goals Assessment Summary Assessment Pt feels good about independent HEP, comfortable with discharge at this time. Pt understands that he would need a new referral in order to return. [facility] Plan Frequency and Duration Frequency of Treatment 2x/Week Plan of Care Start Date 10/01/22 Plan of Care End Date 11/26/22 Therapeutic Interventions Therapeutic Interventions Aquatic Therapy,Home Exercise Program,Joint Mobilizations, Manual Therapy,Neuromuscular Re-education,Patient/Caregiver Education,Self-Care/Home Management,Soft Tissue Mobilization,Therapeutic Activities,Therapeutic Exercises Modalities Cold Pack/Ice Massage,Electric Stimulation,Hot Packs, Ultrasound Discharge Physical Therapy Discharge Comments Discharge to independent [facility] Next Visit Focus/Plan Next Note Type Discharge Summary
== END 2022-11-09 11:59 | disposition home or self-care (01) ==
LOC: PHYS 09:45
PROVIDERS: Family Provider Family Medicine; PCP Family Medicine; Referring Provider Family Medicine; Visit Provider Family Medicine
DX: M54.50 Low back pain, unspecified (principal); M51.16 Intervertebral disc disorders with radiculopathy, lumbar region; M25.551 Pain in right hip
CPT/HCPCS: 97110; 97140; 97161; 97535

== ENCOUNTER → 2022-12-07 09:06 | Outpatient (CLI) | payer MEDICARE, OTHER, SELFPAY ==
--- NOTE | 2022-12-09 08:18 | PM.PFT.1 ---
Pulmonary Function Test Referral & Results Date Patient Seen: 12/07/22 Requesting provider: aJne Ellisno Results: The spirometry demonstrates an FVC of 3.63 L which is 77% of predicted. The FEV1 was measured at 2.14 L which is 62% of predicted. The FEV1/FVC ratio was 59 which is 79% of predicted. Following the administration of bronchodilator there was a 66% improvement in FEF 25-75%. Lung volumes show an SVC of 4.42 L which is 93% of predicted. The diffusing capacity was measured at 20.17 which is 59% of predicted. No hemoglobin value was provided, so no correction for potential anemia could be made, if appropriate. The maximum voluntary ventilation was minimally reduced Interpretation: This study demonstrates mild to moderate obstructive lung disease with evidence of benefit after bronchodilator particularly in small airway flow as noted above Lung volumes are normal Diffusing capacity is moderately reduced as well suggesting the presence of disease at the capillary alveolar level, unless patient is anemic as above Clinical correlation suggested
== END ==
PROVIDERS: Family Provider Family Medicine; PCP Family Medicine; Referring Provider Family Medicine; Visit Provider Family Medicine
DX: J44.9 Chronic obstructive pulmonary disease, unspecified (principal); Z87.891 Personal history of nicotine dependence
CPT/HCPCS: 94060; 94726; 94729

== ENCOUNTER → 2023-04-20 08:17 | Outpatient (CLI) | payer MEDICARE, OTHER, SELFPAY ==
[2023-04-20 09:53] LABS: Cholesterol 173 mg/dL (140-199); HDL Cholesterol 46 mg/dL (40-60); LDL Cholesterol Calculated 94 mg/dL (<100); Triglycerides 164 mg/dL (35-150)
== END ==
PROVIDERS: Family Provider Family Medicine; PCP Family Medicine; Referring Provider Internal Medicine Cardiovascular Disease; Visit Provider Internal Medicine Cardiovascular Disease
DX: Z00.00 Encounter for general adult medical examination without abnormal findings (principal)
CPT/HCPCS: 36415; 80061

== ENCOUNTER → 2023-05-25 09:11 | Outpatient (CLI) | payer MEDICARE, OTHER, SELFPAY ==
--- NOTE | 2023-05-25 | DI.ECHO.S_ITS ---
[place] [facility]---------+ [facility] +---------+ : : [address] : [place] : : : : [id number] : : : : Phone: [phone] Echocardiogram Report + + :Name: FELIPE VICENTE Study Date: 05/25/2023 Height: 70 in : :[facility] ReadingLocation: Weight: 190 lb : : Gender: Male BSA: 2.0 m2 : :: 1955 Age: 67 yrs BP: 155/102 mmHg: :Reason For Study: COPD : :Ordering Physician: ANTHONY, : :MYRNA Performed By: Juliane Tolliver : :Referring: MYRNA ROSSI : + + Interpretation Summary 1) Normal left ventricular thickness and size with low normal systolic function (EF 50-55%). 2) Normal right ventricular size and function. 3) There is borderline mitral valve prolapse with mild to moderate mitral regurgitation. 4) No prior Echo available for comparison. Procedure: A two-dimensional transthoracic echocardiogram with color flow and Doppler was performed. The study quality was technically adequate. There is no prior echocardiogram noted for this patient. The patient was in sinus rhythm with heart rates between 55-61 bpm during the exam. Left Ventricle: The left ventricle is normal in size and wall thickness. The ejection fraction is estimated to be 50-55%. There are no focal wall motion abnormalities. Diastolic parameters suggest a relaxation abnormality of the left ventricle, consistent with probable normal filling pressures. Right Ventricle: The right ventricle is normal in size and function. Atria: The left atrial size is normal. Right atrial size is normal. There is no Doppler evidence for an interatrial shunt. Mitral Valve: The mitral valve leaflets appear borderline thickened, but open well. There is borderline mitral valve prolapse. There is mild to moderate mitral regurgitation. Aortic Valve: The aortic valve is trileaflet. The aortic valve opens well. There is no aortic valve stenosis. There is trace aortic regurgitation. Tricuspid Valve: The tricuspid valve is normal in structure and function. There is trace tricuspid regurgitation. Pulmonic Valve: The pulmonic valve is not well seen, but is grossly normal. There is trace pulmonic regurgitation. Great Vessels: The aortic root is normal size. The dimensions of the ascending aorta are normal. The IVC is of normal diameter and collapses greater than 50% with a sniff. This suggests a low right atrial pressure of 3 mm Hg. Pericardium/ Pleura There is no pericardial effusion. There is no pleural effusion. MMode/2D Measurements & Calculations LVIDd: 5.2 cm LVOT diam: 2.4 cm LVIDs: 3.7 cm Ao root diam: 3.6 cm FS: 28.6 % asc Aorta Diam: 3.3 cm EPSS: 1.1 cm Ao Arch Diam (Prox Trans): 3.2 cm IVSd: 0.89 cm LVPWd: 0.87 cm LV garcia. diameter/BSA (cm/m^2): 2.5 LV sys. diameter/BSA (cm/m^2): 1.8 LA A2 area: 20.3 cm2 RA long axis: 5.1 cm LA A4 area: 17.4 cm2 RA area: 17.3 cm2 LA length (vol): 5.4 cm RA vol: 49.4 ml LA vol: 55.3 ml RA : 24.2 ml/m2 LA vol index: 27.1 ml/m2 IVC diam: 1.6 cm RVD1 (basal): 3.9 cm RVD2 (mid): 3.1 cm TAPSE: 1.8 cm Doppler Measurements & Calculations Ao V2 max: 74.1 cm/sec LVOT Max Preston: 68.8 cm/sec Ao V2 mean: 56.3 cm/sec LV V1 max P.9 mmHg Ao max P.2 mmHg LV V1 VTI: 16.1 cm Ao mean P.4 mmHg DAISY(I,D): 3.5 cm2 Ao V2 VTI: 19.7 cm DAISY(V,D): 4.0 cm2 sev ratio: 0.82 DAIYS indexed to BSA (cm^2/m^2): 1.7 MV E max preston: 45.4 cm/sec TR max preston: 222.4 cm/sec MV A max preston: 52.6 cm/sec TR max P.8 mmHg MV E/A: 0.86 PA V2 max: 66.8 cm/sec Med Peak E' Preston: 5.0 cm/sec PA V2 mean: 47.1 cm/sec E/E' med: 9.0 PA mean P.99 mmHg Lat Peak E' Preston: 6.8 cm/sec PA pr(Accel): 31.0 mmHg E/E' lat: 6.7 E/e' average: 7.9 MV dec time: 0.30 sec [facility] 69.9 ml Reading Physician:04:06 PM
== END ==
PROVIDERS: Family Provider Family Medicine; PCP Family Medicine; Referring Provider Internal Medicine Cardiovascular Disease; Visit Provider Internal Medicine Cardiovascular Disease
DX: J44.9 Chronic obstructive pulmonary disease, unspecified (principal); I34.0 Nonrheumatic mitral (valve) insufficiency; R06.09 Other forms of dyspnea
CPT/HCPCS: 93306

== ENCOUNTER → 2023-12-10 | Outpatient (CLI) | payer MEDICARE, OTHER, SELFPAY ==
--- NOTE | 2023-12-10 10:43 | DI.CT.S_ITS ---
PROCEDURE: CT CHEST WO CON INDICATIONS: Multiple pulmonary nodules, evaluate for interval change TECHNIQUE: Noncontrast 2.0-2.5 mm thick sections acquired from the pulmonary apices to the posterior costophrenic angles. 7 mm thick axial MIP and 5 mm coronal and sagittal reformats were then acquired. For radiation dose reduction, the following was used: automated exposure control, adjustment of mA and/or kV according to patient size. COMPARISON: [facility], CT, CT HIGH RESOLUTION CHEST, 12/09/2022, 10:57. FINDINGS: Image quality: Diagnostic. Lower Neck: No enlarged lymph nodes. Thyroid: No thyroid nodules which require sonographic follow up, per consensus guidelines. Axillae: No enlarged lymph nodes. Chest Wall: Mild gynecomastia. Bones: Unremarkable. Lungs and Pleura: Patchy ground-glass opacities are present bilaterally, overall improved compared to the last exam. Airspace opacities in right lower lobe, are, however, slightly increased. There are several small nodules. -4 mm; solid; left major fissure; series 3, image 178; stable. -6 mm; ground-glass; right major fissure; series 3, image 185; new. -5 mm; ground-glass; right upper lobe; series 3, image 132; new. -6 x 12 mm; subsolid; lingula; series 3, image 223; new. There is nodular bronchial wall thickening bilaterally. Endobronchial nodularity bilaterally, probably secondary to mucous plugging. No pneumothorax or pleural effusions. No consolidation Heart: Heart size is normal. No pericardial effusion. There is mild coronary artery calcification. Thoracic Vessels: The aorta and pulmonary arteries demonstrate normal size. Mediastinum and Kelly: No enlarged lymph nodes. Esophagus: No wall thickening. Small hiatal hernia. Upper Abdomen: Visualized upper abdomen solid organs and bowel loops appear normal. IMPRESSION: There is mixed interval change. 1. Overall, patchy ground-glass opacities are improved. Inflammatory or infectious etiology is favored. 2. Slight worsening of right lower lobe airspace opacity. 3. Stable solid nodule in left major fissure. There are several new ground-glass nodules. 4. Persistent nodular bronchial wall thickening and mucous plugging consistent with bronchitis. Fleischner Society criteria for SOLID lung nodule followup. Nodule size (mm)Low-risk patientHigh-risk patient<6 (single or multiple)No routine followup.Optional CT at 12 months. 6-8 (single or multiple)CT at 6-12 months, then optional CT at 18-24 mo.CT at 6-12 months, then CT at 18-24 months. >8 (single)CT at 3 months, PET-CT, or biopsy. Same as for low-risk pts. >8 (multiple)CT at 3-6 months, then optional CT at 18-24 mo.CT at 3-6 months, then CT at 18-24 months. Fleischner Society criteria for SUB-SOLID lung nodule followup. Solitary pure ground-glass nodules<6 mm (ground glass or part solid)No followup needed. 6 mm or larger (ground glass)CT at 6-12 months to confirm persistence, then CT every 2 years until 5 years.6 mm or larger (part solid)CT at 3-6 months to confirm persistence, then annual CT until 5 years if unchanged and solid component remains <6 mm. Multiple sub-solid nodules<6 mmCT at 3-6 months, then CT consider at 2 & 4 years for high risk patients. [address] at 3-6 months. Subsequent management based on most suspicious lesions. Recommendations do not apply to lung cancer screening, patients with immunosuppression, or patients with known primary cancer. Dictated by: Og Tiwari M.D. on 12/20/2023 at 17:02 Approved by: Og Tiwari M.D. on 12/21/2023 at 13:53
== END ==
LOC: CT 10:41
PROVIDERS: Family Provider Family Medicine; PCP Family Medicine; Referring Provider Internal Medicine Critical Care Medicine; Visit Provider Internal Medicine Critical Care Medicine
DX: R91.8 Other nonspecific abnormal finding of lung field (principal); I25.10 Atherosclerotic heart disease of native coronary artery without angina pectoris; N62 Hypertrophy of breast; K44.9 Diaphragmatic hernia without obstruction or gangrene
CPT/HCPCS: 71250

== ENCOUNTER 2024-03-13 12:30 | Outpatient (RCR) | payer MEDICARE, OTHER, SELFPAY | END 2024-03-13 14:00 | LOC: PUL 12:30 | PROVIDERS: Family Provider Family Medicine; PCP Family Medicine; Referring Provider Internal Medicine Critical Care Medicine; Visit Provider Internal Medicine Critical Care Medicine | DX: J44.9 Chronic obstructive pulmonary disease, unspecified (principal) | CPT/HCPCS: 94625; 94626 ==

== ENCOUNTER → 2024-04-13 15:23 | Outpatient (CLI) | payer MEDICARE, OTHER, SELFPAY ==
--- NOTE | 2024-04-13 16:00 | DI.RAD.S_ITS ---
PROCEDURE: XR CHEST 2V INDICATIONS: COPD exacerbation concern for PNA TECHNIQUE: 2 views of the chest were acquired. COMPARISON: None. FINDINGS: Surgical changes and devices: None. Lungs and pleura: Lungs are clear. No pleural effusions or pneumothorax. Peribronchial cuffing. Mediastinum: Mediastinal contours are normal. Heart size is normal. Bones and chest wall: No suspicious bony abnormalities. Soft tissues appear unremarkable. IMPRESSION: Peribronchial cuffing, typically indicating infectious or inflammatory bronchitis. No evidence of pneumonia. Dictated by: Wilbert Stallworth M.D. on 04/13/2024 at 15:42 Approved by: Wilbert Stallworth M.D. on 04/13/2024 at 15:43
[2024-04-13 16:16] LABS: Influenza A - CEPHEID Flu A NEGATIVE (NEGATIVE); Influenza B - CEPHEID Flu B NEGATIVE (NEGATIVE); Respiratory Syncytial Virus Negative (Negative)
[2024-04-13 16:30] LABS: COVID-19 CEPHEID 4-PLEX PCR Negative (Negative)
== END ==
PROVIDERS: Family Provider Family Medicine; PCP Family Medicine; Referring Provider Student in an Organized Health Care Education/Training Program; Visit Provider Student in an Organized Health Care Education/Training Program
DX: R05.1 Acute cough (principal); J44.1 Chronic obstructive pulmonary disease with (acute) exacerbation
CPT/HCPCS: 0241U; 71046

== ENCOUNTER → 2024-06-29 09:11 | Outpatient (CLI) | payer MEDICARE, OTHER, SELFPAY ==
[2024-06-29 10:14] LABS: Add Manual Diff / Slide Review NO; Basophils Absolute Auto 0 /uL (0-100); Basophils Percent Auto 0.9 % (0-2); Eosinophils Absolute Auto 400 /uL (0-450); Eosinophils Percent Auto 8.5 % (2-4); Hematocrit 41.7 % (41-53); Hemoglobin 14.5 g/dL (13.5-17.5); Lymphocytes Absolute Auto 1500 /uL (1100-4500); Lymphocytes Percent Auto 28.5 % (25-40); Mean Corpuscular HGB Conc 34.7 % (30-36); Mean Corpuscular Hemoglobin 32.1 PG (26-34); Mean Corpuscular Volume 92.5 fL (80-100); Monocytes Absolute Auto 400 /uL (0-900); Monocytes Percent Auto 8.4 % (3-14); Neutrophils Absolute Auto 2700 /uL (1500-7000); Neutrophils Percent Auto 53.7 % (50-75); Platelet Count 205 X10^3/uL (150-400); Red Blood Cell Count 4.51 X10^6/uL (4.5-5.9); Red Cell Distribution Width 12.8 % (11.6-14.8); White Blood Cell Count 5.1 X10^3/uL (4.5-11.0)
[2024-06-29 10:48] LABS: Vitamin D 25 Hydroxy (D3) 33.3 ng/mL (30.0-100.0)
[2024-06-29 11:40] LABS: Alanine Aminotransferase 16 IU/L (<50); Albumin 4.1 g/dL (3.5-5.0); Albumin Globulin Ratio 1.3 (1.0-2.8); Alkaline Phosphatase 57 U/L (38-126); Aspartate Aminotransferase 25 IU/L (17-59); BUN Creatinine Ratio 13.9 (6-22); Bilirubin Total 1.9 mg/dL (0.2-1.3); Blood Urea Nitrogen 14 mg/dL (9-20); Calcium 9.4 mg/dL (8.4-10.2); Carbon Dioxide 29 mmol/L (22-32); Chloride 104 mmol/L (98-107); Cholesterol 219 mg/dL (140-199); Estimated Glomerular Filt Rate > 60 mL/min (>60); Globulin 3.1 g/dL (1.7-4.1); Glucose 103 mg/dL (80-110); HDL Cholesterol 45 mg/dL (40-60); HEMOLYSIS < 15 (0-50); LDL Cholesterol Calculated 144 mg/dL (<100); Potassium 4.4 mmol/L (3.4-5.1); Sodium 135 mmol/L (137-145); Total Protein 7.2 g/dL (6.3-8.2); Triglycerides 150 mg/dL (35-150)
[2024-06-29 11:44] LABS: High Sensitivity CRP - Cardiac 1.1 mg/L (1.0-3.0)
== END ==
PROVIDERS: PCP Family Medicine; Referring Provider Family Medicine; Visit Provider Family Medicine
DX: Z00.00 Encounter for general adult medical examination without abnormal findings (principal); I47.19 Other supraventricular tachycardia; I34.0 Nonrheumatic mitral (valve) insufficiency; J41.8 Mixed simple and mucopurulent chronic bronchitis
CPT/HCPCS: 36415; 80053; 80061; 82306; 85025; 86140

== ENCOUNTER → 2024-09-15 09:06 | Outpatient (CLI) | payer MEDICARE, OTHER, SELFPAY ==
--- NOTE | 2024-09-15 09:08 | DI.ECHO.S_ITS ---
[facility]+ [facility] : : [address] : : [place] : : [id number] : : Phone: [phone] Echocardiogram Report + + :Name: FELIPE VICENTE Study Date: 09/15/2024 Height: 70 in : :[facility] ReadingLocation: Weight: 190 lb : : Gender: Male BSA: 2.0 m2 : :: 1955 Age: 69 yrs BP: 138/87 mmHg: :Reason For Study: ATRIAL TACHYCARDIA : :Ordering Physician: ANTHONY, : :MYRNA Performed By: Cole Woods : :Referring: MYRNA ROSSI : + + Interpretation Summary 1) Normal left ventricular thickness and size with mildly to moderately reduced systolic function (EF 60-65%). 2) Mildly enlarged right ventricle with normal function. 3) There is borderline mitral valve prolapse with mild mitral regurgitation. 4) Compared to the Echo done 05/25/2023, LVEF has decreased from 50-55% to 40- 45% on this study. Procedure: A two-dimensional transthoracic echocardiogram with color flow and Doppler was performed. The study quality was technically good. Comparison is made with the echocardiogram of 05/25/2023. The patient was in normal sinus rhythm during the exam. Left Ventricle: The left ventricle is normal in size. There is normal left ventricular wall thickness. There is no ventricular septal defect visualized. The ejection fraction is estimated to be 40-45%. There is mild global hypokinesis of the left ventricle. Diastolic parameters suggest probable normal left ventricular diastolic function and normal filling pressures. Right Ventricle: The right ventricle is mildly dilated. The right ventricular systolic function is normal. Atria: The left atrium is moderately dilated. The right atrium is mildly dilated. There is no Doppler evidence for an atrial septal defect. Mitral Valve: The mitral valve leaflets appear mildly thickened, but open well. There is borderline mitral valve prolapse. There is mild mitral regurgitation. Aortic Valve: The aortic valve is trileaflet. The aortic valve opens well. The aortic valve is slightly calcified. No aortic regurgitation is present. Tricuspid Valve: The tricuspid valve leaflets are thin and pliable. There is a trace or physiologic amount of tricuspid regurgitation. Pulmonic Valve: The pulmonic valve leaflets are thin and pliable; valve motion is normal. There is trace pulmonic regurgitation. Great Vessels: The aortic root is normal size. The dimensions of the ascending aorta are normal. The pulmonary artery is normal size. The IVC is of normal diameter and collapses greater than 50% with a sniff. This suggests a low right atrial pressure of 3 mm Hg. Pericardium/ Pleura There is no pericardial effusion. There is no pleural effusion. MMode/2D Measurements & Calculations LVIDd: 4.8 cm LVOT diam: 2.4 cm LVIDs: 3.8 cm Ao root diam: 3.6 cm FS: 20.2 % asc Aorta Diam: 3.4 cm EPSS: 0.71 cm IVSd: 1.1 cm LVPWd: 1.2 cm LV garcia. diameter/BSA (cm/m^2): 2.3 LV sys. diameter/BSA (cm/m^2): 1.9 LA A2 area: 21.0 cm2 RA long axis: 6.0 cm LA A4 area: 24.4 cm2 RA area: 20.2 cm2 LA length (vol): 5.6 cm RA vol: 58.0 ml LA vol: 77.2 ml RA : 28.4 ml/m2 LA vol index: 37.8 ml/m2 IVC diam: 2.4 cm RVD1 (basal): 4.2 cm RVD2 (mid): 3.0 cm TAPSE: 2.0 cm Doppler Measurements & Calculations Ao V2 max: 81.2 cm/sec LVOT Max Preston: 68.1 cm/sec Ao V2 mean: 64.4 cm/sec LV V1 max P.9 mmHg Ao max P.6 mmHg LV V1 VTI: 15.3 cm Ao mean P.8 mmHg DAISY(I,D): 3.1 cm2 Ao V2 VTI: 21.6 cm DAISY(V,D): 3.7 cm2 sev ratio: 0.71 DAISY indexed to BSA (cm^2/m^2): 1.5 MV E max preston: 44.3 cm/sec TR max preston: 209.4 cm/sec MV A max preston: 36.7 cm/sec TR max P.5 mmHg MV E/A: 1.2 PA V2 max: 53.1 cm/sec Med Peak E' Preston: 5.5 cm/sec PA V2 mean: 37.9 cm/sec E/E' med: 8.0 PA mean P.62 mmHg Lat Peak E' Preston: 6.8 cm/sec PA pr(Accel): 43.0 mmHg E/E' lat: 6.5 E/e' average: 7.3 MV dec time: 0.40 sec SV(LVOT): 67.2 ml Reading Physician:10:29 AM
== END ==
PROVIDERS: PCP Family Medicine; Referring Provider Internal Medicine Cardiovascular Disease; Visit Provider Internal Medicine Cardiovascular Disease
DX: I34.0 Nonrheumatic mitral (valve) insufficiency (principal); I47.19 Other supraventricular tachycardia
CPT/HCPCS: 93306

== ENCOUNTER → 2024-10-06 13:15 | Outpatient (CLI) | payer MEDICARE, OTHER, SELFPAY | LOC: LAB 13:16 | PROVIDERS: PCP Family Medicine; Referring Provider Internal Medicine Critical Care Medicine; Visit Provider Internal Medicine Critical Care Medicine | DX: J44.1 Chronic obstructive pulmonary disease with (acute) exacerbation (principal) | CPT/HCPCS: 87116; 87206 ==

== ENCOUNTER → 2024-10-17 08:37 | Outpatient (CLI) | payer MEDICARE, OTHER, SELFPAY ==
--- NOTE | 2024-10-17 08:38 | DI.CT.S_ITS ---
PROCEDURE: CT CHEST WO CON INDICATIONS: Diffuse lung disease including ggo and consolidation, eval TECHNIQUE: Noncontrast 5 mm thick sections acquired from the pulmonary apices to the posterior costophrenic angles. 1 mm lung window, 5 mm thick coronal and sagittal and 7 mm axial MIP reformats were then acquired. For radiation dose reduction, the following was used: automated exposure control, adjustment of mA and/or kV according to patient size. COMPARISON: [facility], CT, CT CHEST WO [facility], 12/10/2023, 11:02. FINDINGS: Image quality: Diagnostic. Lower Neck: No enlarged lymph nodes. Thyroid: No thyroid nodules which require sonographic follow up, per consensus guidelines. Axillae: No enlarged lymph nodes. Chest Wall: Unremarkable. Bones: Unremarkable. Lungs and Pleura: Interval resolution of the majority of patchy ground-glass opacities throughout both lungs seen on prior chest CT of 12/10/2023. There is a new mild patchy area of ground-glass opacity along the anterior right upper lobe (series 3, image 91). Patchy ground-glass opacities within both lower lobes appears improved with only a mild degree of residual patchy ground-glass. 1.9 cm subpleural nodular density within the central aspect of the posterior right middle lobe (series 3, image 199) appears new and corresponds to area of ground-glass opacity seen previously. 5 mm subpleural nodule along the anterior left lower lobe (series 3, image 163) appears stable in size. Interval resolution of previously demonstrated and reported ground-glass opacities within right upper and right middle lobes and patchy opacity within the lingula. No evidence of pneumothorax or pleural effusion. Heart: Heart size is normal. No pericardial effusion. Thoracic Vessels: The aorta and pulmonary arteries demonstrate normal size. Mediastinum and Kelly: No enlarged lymph nodes. Esophagus: No wall thickening. No hiatal hernia. Upper Abdomen: Visualized upper abdomen solid organs and bowel loops appear normal. IMPRESSION: 1. Interval resolution of majority of patchy ground-glass opacities throughout both lungs with only mild degree of residual ground-glass opacity within both lower lobes and a new ground-glass opacity within the anterior right upper lobe likely related to infectious or inflammatory pneumonitis. 2. Interval resolution of prior ground-glass nodules with a new 1.9 cm subpleural nodular density within the central right middle lobe. Dictated by: Minh Culp M.D. on 10/17/2024 at 14:19 Approved by: Minh Culp M.D. on 10/17/2024 at 14:32
== END ==
PROVIDERS: PCP Family Medicine; Referring Provider Internal Medicine Critical Care Medicine; Visit Provider Internal Medicine Critical Care Medicine
DX: J98.4 Other disorders of lung (principal); R91.1 Solitary pulmonary nodule
CPT/HCPCS: 71250

== ENCOUNTER → 2025-01-18 12:27 | Outpatient (CLI) | payer MEDICARE, OTHER, SELFPAY | PROVIDERS: PCP Family Medicine; Referring Provider Internal Medicine Infectious Disease; Visit Provider Internal Medicine Infectious Disease | DX: A31.0 Pulmonary mycobacterial infection (principal) | CPT/HCPCS: 87116; 87206 ==

== ENCOUNTER → 2025-01-22 15:16 | Outpatient (CLI) | payer MEDICARE, OTHER, SELFPAY | PROVIDERS: PCP Family Medicine; Referring Provider Internal Medicine Infectious Disease; Visit Provider Internal Medicine Infectious Disease | DX: A31.0 Pulmonary mycobacterial infection (principal) | CPT/HCPCS: 87116; 87206 ==

== ENCOUNTER → 2025-02-28 07:46 | Outpatient (CLI) | payer MEDICARE, OTHER, SELFPAY ==
--- NOTE | 2025-02-28 08:06 | DI.CT.S_ITS ---
PROCEDURE: CT CHEST WO CON INDICATIONS: evaluate for changes in ILD and copd TECHNIQUE: Noncontrast 5 mm thick sections acquired from the pulmonary apices to the posterior costophrenic angles. 1 mm lung window, 5 mm thick coronal and sagittal and 7 mm axial MIP reformats were then acquired. For radiation dose reduction, the following was used: automated exposure control, adjustment of mA and/or kV according to patient size. COMPARISON: [facility], CT, CT CHEST WO CON, 10/17/2024, 8:41. FINDINGS: Image quality: Diagnostic. Lower Neck: No enlarged lymph nodes. Thyroid: No thyroid nodules which require sonographic follow up, per consensus guidelines. Axillae: No enlarged lymph nodes. Chest Wall: Unremarkable. Bones: Unremarkable. Lungs and Pleura: No pneumothorax or pleural effusions. There is a new 1.1 cm part solid alveolar density in the right upper lobe centrally. There is also a new 1.9 cm ground-glass density with central lucency in the left upper lobe inferolaterally. Minimal residual small airway densities. Heart: Heart size is normal. No pericardial effusion. Thoracic Vessels: The aorta and pulmonary arteries demonstrate normal size. Mediastinum and Kelly: No enlarged lymph nodes. Esophagus: No wall thickening. No hiatal hernia. Upper Abdomen: Visualized upper abdomen solid organs and bowel loops appear normal. IMPRESSION: 1. New focal alveolar densities in the right upper lobe and left upper lobe, may represent foci of active atypical infection. 2. No pleural effusion or confluent consolidation seen. Dictated by: Jeffrey Benítez M.D. on 02/28/2025 at 15:06 Approved by: Jeffrey Benítez M.D. on 02/28/2025 at 15:16
[2025-02-28 08:47] LABS: Cholesterol 214 mg/dL (140-199); HDL Cholesterol 50 mg/dL (40-60); LDL Cholesterol Calculated 133 mg/dL (<100); Triglycerides 153 mg/dL (35-150)
== END ==
PROVIDERS: PCP Family Medicine; Referring Provider Internal Medicine Cardiovascular Disease; Visit Provider Internal Medicine Cardiovascular Disease
DX: Z00.00 Encounter for general adult medical examination without abnormal findings (principal); R91.1 Solitary pulmonary nodule
CPT/HCPCS: 36415; 71250; 80061

== ENCOUNTER 2025-08-02 08:07 | Day surgery (SDC) | payer MEDICARE, OTHER, SELFPAY ==
--- NOTE | 2025-08-02 | PATH_ITS ---
[facility] Accession Number: [id number] No. of containers..01 Tissue . 01 Material submitted: . colon - COLON POLYP AT 25CM . 01 Diagnosis: COLON POLYP AT 25CM: Tubular adenoma. [facility] 08/14/20251416 Local . 01 Electronically signed: . Dmitry Love MD, Pathologist NPI- [id number] . 01 Gross description: . Received one formalin-filled container, labeled with the patient's name and colon polyp 25 cm. The specimen consists of two fragments of bailey, soft tissue and/or debris which range in size from 0.2 x 0.1 x 0.1 cm to 0.4 x 0.3 x 0.2 cm. All fragments are totally submitted in one cassette. (DC:[id number]) /[facility] 08/14/20251416 Local . 01 Pathologist provided ICD-10: D12.6 . 01 CPT . 814869 Specimen Comment: A courtesy copy of this report has been sent to [facility] Pathology Performed at: [address] [id number] MD Dmitry Love MD Phone: [phone]
--- NOTE | 2025-08-02 06:33 | PM.HP.IH.1 ---
History of Present Illness History of Present Illness Date Patient Seen: 08/02/25 Time Patient Seen: 06:33 Chief complaint: Colonoscopy Narrative: 69yo M presents for screening colonoscopy today. 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 COPD (chronic obstructive pulmonary disease) Surgical History (Updated 07/26/25 @ 17:11 by Jane Ellison DO) [place] teeth removed (09/27/70) Meds Home Medications and Allergies Home Medications ?Medication ?Instructions ?Recorded ?Confirmed ?Type bimatoprost 0.01 % eye drops drp EYE-BOTH 07/24/22 07/26/25 History (Eliane) dorzolamide 22.3 mg-timolol 6.8 EYE-BOTH 09/17/23 07/26/25 History mg/mL eye drops sodium,potassium,mag sulfates 17.5 See Rx Instructions PO .COMPLEX 07/20/25 07/26/25 Rx gram-3.13 gram-1.6 gram oral soln #354 mL (Suprep Bowel Prep Kit) albuterol sulfate 90 mcg/actuation 2 puff inhalation Q6H PRN 07/26/25 07/26/25 Rx aerosol inhaler (Ventolin HFA) shortness of breath or wheezing #8.5 grams famotidine 40 mg tablet See Rx Instructions .Route 07/26/25 07/26/25 Rx .COMPLEX #90 tabs fluticasone 500 mcg-salmeterol 50 1 inh inhalation BID #180 ea 07/26/25 07/26/25 Rx mcg/dose blistr powdr for inhalation (Wixela Inhub) fluticasone propionate 50 1 spray intranasal DAILY Allergies 07/26/25 07/26/25 Rx mcg/actuation nasal #48 grams spray,suspension (Allergy Relief (fluticasone)) ipratropium 0.5 mg-albuterol 3 mg 3 ml inhalation Q6H PRN shortness 07/26/25 07/26/25 Rx (2.5 mg base)/3 mL nebulization of breath or wheezing #180 mL soln metoprolol tartrate 50 mg tablet 50 mg PO DAILY 07/26/25 07/26/25 History montelukast 10 mg tablet 10 mg PO DAILY #90 tabs 07/26/25 07/26/25 Rx zolpidem 5 mg tablet 5 mg PO BEDTIME PRN insomnia #30 07/26/25 07/26/25 Rx tabs Allergies Allergy/AdvReac Type Severity Reaction Status Date / Time No Known Drug Allergies Allergy Verified 10/06/24 09:13 Exam Narrative Exam Narrative: Const General: comfortable Orientation: alert and oriented x3 Resp Effort & Inspection: normal respiratory effort and able to speak in complete sentences Cardio Rate: regular rate GI Palpation: soft (NT) Extrem General: no pedal edema and no calf tenderness Assessment & Plan Assessment and plan (1) Encounter for screening colonoscopy: Status: Acute Plan Plan screening colonoscopy, possible biopsy. The risks, benefits and options regarding the procedure were explained to the patient in detail. Risk discussion included but not limited to: bleeding, perforation, missed lesion, unable to reach cecum. The patient was encouraged to ask questions and they were answered to their satisfaction. The patient understands and is agreeable to proceed. Time-Based Coding :: [TOTAL MINUTES] spent with patient and on the chart (including review of chart, obtaining history, exam, reviewing outside data, placing orders, documenting exam and treatment plan, and counseling patient) on [DATE]. [employer] Document charge(s): Yes Charge Codes Inpatient/observation care including admit and discharge same day: [id number]
[2025-08-02 09:10] VITALS: BP 150/88; PULSE 55; RESP 16; TEMP 36.3; O2SAT 97
[2025-08-02] MEDS: LACTATED RINGERS 1,000 ML 84 ML IV (09:28)
--- NOTE | 2025-08-02 09:51 | PM.OP.COLON ---
Operative Date/Time/Diagnoses Date of procedure: 08/02/25 Time of procedure: 10:43 Pre-op diagnosis: Screening colonoscopy Post-op diagnosis: other (polyp) Procedure & Clinicians Study performed: Screening colonoscopy with polypectomy Same procedure(s) as scheduled: Yes Indications: 69yo M, h/o polyps, screening colonoscopy today Surgeon: Wolfgang Sandoval Anesthesia Type: MAC +/- Procedure Notes SCOAP/Timeout: Performed Procedure in detail: Colonoscopy Patient placed in left lateral recumbent position. Time out was performed. Procedural sedation was administered by anesthesia. Examination began with a thorough inspection of the perianal area. There was no evidence of fissures, fistulae, external hemorrhoids or cutaneous malignancy. The colonoscope was then placed into the rectum and the lumen was insufflated with carbon dioxide. The scope was carefully advanced forward. Ultimately the cecum was intubated and confirmed by identification of the ileocecal valve, the appendiceal orifice and the confluence of the taenia. The scope was then slowly withdrawn examining the colon thoroughly in all directions. In the rectum, retroflexion of the scope was performed for inspection of the distal rectum and anal canal. ?Significant colonoscopy findings: ?1. Quality of the preparation-good, [place] 2-3, improved with irrigation/suction ?2. 1cm pedunculated polyp at 25cm, adenomatous, benign appearing. removed with cold snare and retrieved for pathology, difficult polypectomy due to location in sharp turn behind haustral fold 3. Extensive sigmoid diverticulosis Scope withdrawal time: 39 minutes Findings: divertiulosis and polyp(s) Specimen(s): other (polyp) Estimated Blood Loss: 5 Complications: none Impression: Colon polyp Continue 5 year screening Post-procedure Recommendations: Colonoscopy in 5 years Plan for aftercare: PACU then home Follow up: as needed Disposition: PACU
[2025-08-02 10:42] VITALS: BP 123/68; PULSE 61; RESP 15; TEMP 36.2; O2SAT 97
[2025-08-02 10:47] VITALS: BP 119/68; PULSE 67; RESP 15; TEMP 36.2; O2SAT 96
== END 2025-08-02 11:10 | disposition home or self-care (01) ==
PROVIDERS: PCP Family Medicine; Referring Provider Family Medicine; Visit Provider Surgery
PROC: 0DJD8ZZ Inspection of Lower Intestinal Tract, Via Natural or Artificial Opening Endoscopic (ICD-10-PCS; CPT 45378; principal; 2025-08-02 09:15)
DX: Z12.11 Encounter for screening for malignant neoplasm of colon (principal); D12.6 Benign neoplasm of colon, unspecified; K57.30 Diverticulosis of large intestine without perforation or abscess without bleeding; Z86.0100 Personal history of colon polyps, unspecified
CPT/HCPCS: 45385; J2704; J7120

== ENCOUNTER → 2025-09-14 08:35 | Outpatient (CLI) | payer MEDICARE, OTHER, SELFPAY ==
--- NOTE | 2025-09-14 08:37 | DI.CT.S_ITS ---
PROCEDURE: CT CHEST WO CON INDICATIONS: Pulmonary nodules, eval for change TECHNIQUE: Noncontrast 2.0-2.5 mm thick sections acquired from the pulmonary apices to the posterior costophrenic angles. 7 mm thick axial MIP and 5 mm coronal and sagittal reformats were then acquired. For radiation dose reduction, the following was used: automated exposure control, adjustment of mA and/or kV according to patient size. COMPARISON: Merged With [facility], CT, CT CHEST WO CON, 12/10/2023, 11:02. Merged With [facility], CT, CT CHEST WO CON, 02/28/2025, 8:08. Merged With [facility], CT, CT CHEST WO CON, 10/17/2024, 8:41. FINDINGS: Image quality: Diagnostic. Lower Neck: No enlarged lymph nodes. Thyroid: No thyroid nodules which require sonographic follow up, per consensus guidelines. Axillae: No enlarged lymph nodes. Chest Wall: Unremarkable. Bones: Unremarkable. Lungs and Pleura: No pneumothorax or pleural effusions. Previously described 1.1 cm part solid alveolar density in right upper lobe is no longer present. Previously described 1.9 cm ground-glass opacity with central lucency involving lateral left upper lobe is no longer seen. Tiny part solid nodular density is seen in anterior aspect of left upper lobe measures 3 mm in size series 3, image 136. Tiny 2 mm solid nodule is seen in lateral right upper lobe series 3, image 136. These are unchanged from prior study. Bibasilar scattered scarring/atelectasis is seen. No new suspicious pulmonary nodule. Heart: Heart size is normal. No pericardial effusion. Thoracic Vessels: The aorta and pulmonary arteries demonstrate normal size. Mediastinum and Kelly: No enlarged lymph nodes. Esophagus: No wall thickening. Allen bowel hiatal hernia. Upper Abdomen: Visualized upper abdomen solid organs and bowel loops appear normal. IMPRESSION: 1. Interval resolution of previously described part solid density in right upper lobe and ground-glass density in left upper lobe suggestive of resolved infectious or inflammatory process. 2. Stable tiny nodule seen in bilateral upper lobes as above. No new suspicious pulmonary nodules. No further CT chest follow-up is indicated at this time. 3. No mediastinal or hilar lymphadenopathy. Fleischner Society criteria for SOLID lung nodule followup. Nodule size (mm)Low-risk patientHigh-risk patient<6 (single or multiple)No routine followup.Optional CT at 12 months. 6-8 (single or multiple)CT at 6-12 months, then optional CT at 18-24 mo.CT at 6-12 months, then CT at 18-24 months. >8 (single)CT at 3 months, PET-CT, or biopsy. Same as for low-risk pts. >8 (multiple)CT at 3-6 months, then optional CT at 18-24 mo.CT at 3-6 months, then CT at 18-24 months. Fleischner Society criteria for SUB-SOLID lung nodule followup. Solitary pure ground-glass nodules<6 mm (ground glass or part solid)No followup needed. 6 mm or larger (ground glass)CT at 6-12 months to confirm persistence, then CT every 2 years until 5 years.6 mm or larger (part solid)CT at 3-6 months to confirm persistence, then annual CT until 5 years if unchanged and solid component remains <6 mm. Multiple sub-solid nodules<6 mmCT at 3-6 months, then CT consider at 2 & 4 years for high risk patients. [address] at 3-6 months. Subsequent management based on most suspicious lesions. Recommendations do not apply to lung cancer screening, patients with immunosuppression, or patients with known primary cancer. Dictated by: Monty Aguilar M.D. on 09/14/2025 at 13:47 Approved by: Monty Aguilar M.D. on 09/14/2025 at 14:08
== END ==
LOC: CT 08:37
PROVIDERS: PCP Family Medicine; Referring Provider Internal Medicine Critical Care Medicine; Visit Provider Internal Medicine Critical Care Medicine
DX: R91.1 Solitary pulmonary nodule (principal)
CPT/HCPCS: 71250